=== PATIENT | male | born 1945 | race Caucasian/White ===

== ENCOUNTER 2016-07-19 10:33 | Inpatient (IN) | payer OTHER, MEDICARE ==
[2016-07-19] VITALS (11 sets, daily range): BP systolic 85–115; BP diastolic 63–72; PULSE 75–90; RESP 17–20; TEMP 97.7–99; O2SAT 93–98
[~2016-07-19] VITALS: Ht 208.3 cm; Wt 93.3 kg
[~2016-07-19 10:33] MED LIST: ASPI81TA82 PO; ATOR80TA PO; CARV3.12 PO; FLUT1INH INH; LOSA25TA31 PO; OXYBXL10 PO; PERC5TAB12 PO; RANI150 PO; SPIRCAP INH; TOVI4TAB PO; Z.0.OXYGEN INH
--- NOTE | 2016-07-19 10:52 | PD ---
HPI Chief Complaint: Fever Time Seen by Provider: 10:51 Travel History International Travel<30 days: No Contact w/Intl Traveler<30days: No Traveled to known affect area: No History of Present Illness HPI 70-year-old male came to the emergency room with history of fever, not feeling well and being sent by his ENT surgeon. His brought him in. Patient had sinus surgery done [address] Egan in his office. Since then he has been having runny nose and low-grade fever as per the patient. However since yesterday he has been having temperature of 101.5, body aches, headaches and the diarrhea. Patient says that whenever he attempts to eat or drink just comes straight out like water. No history of vomiting. Blood pressure in triage was 85/45. [facility] Past Medical History Narrative Medical List of his past medical history as reviewed from the nursing note. Arthritis: No Asthma: Yes Autoimmune Disease: No Blood Disorders: No Anxiety: No Depression: No Heart Rhythm Problems: No Cancer: No Cardiac Catheterization: Yes Cardiovascular Problems: Yes (hx of cardiac stents x3 hx of 4 mi's ) High Cholesterol: Yes Chemotherapy: No Chest Pain: Yes Congestive Heart Failure: Yes COPD: Yes Cerebrovascular Accident: No Coronary Artery Disease: Yes Diabetes: No Diminished Hearing: No Endocrine: No Gastrointestinal Disorders: No GERD: Yes Glaucoma: No Genitourinary: Yes (prostate) Headaches: Yes Hepatitis: No Hiatal Hernia: Yes Hypertension: Yes Immune Disorder: No Implanted Vascular Access Dvce: Yes Kidney Stones: No Musculoskeletal: No Neurologic: No Psychiatric: No Reproductive: Yes Respiratory: Yes (copd, hx of sinusitis, SLEEP APNEA) Migraines: No Myocardial Infarction: Yes (NOVEMBER 2009) Radiation Therapy: No Renal Failure: No Seizures: No Sickle Cell Disease: No Sleep Apnea: No Thyroid Disease: No Ulcer: No Past Surgical History Abdominal Surgery: Yes (right inguinal hernia removed) AICD: No Arteriovenous Shunt: No Body Medical Devices: left wrist hardware x3 cardiac stents Cardiac Surgery: Yes (x3 cardiac stents) Coronary Stent: Yes (X 3) Ear Surgery: Yes (cataracts bilat) Endocrine Surgery: No Eye Surgery: No Genitourinary Surgery: Yes (TURPX3) Gynecologic Surgery: No Insulin Pump: No Joint Replacement: No Neurologic Surgery: No Oral Surgery: No Pacemaker: No Thoracic Surgery: No Other Surgery: Yes (INGUINAL HERNIA REPAIR) Social History Alcohol Use: Yes (OCCASIONAL BEER) Tobacco Use: No Substance Use: No Allergies-Medications (Allergen,Severity, Reaction): Coded Allergies: *MDRO Multi-Drug Resistant Organism (Unverified Allergy, Unknown, 07/19/16 ) pt states hx of mrsa r great toe in the past Comments List of his allergies reviewed from the nursing note. Reported Meds & Prescriptions Reported Meds & Active Scripts Active Reported Ventolin Hfa 18 GM Inh (Albuterol Sulfate) 90 Mcg/Act Aer 1 Puff INH Q4H PRN Breo Ellipta Inh (Fluticasone/Vilanterol) 100-25 Mcg/Act Inh 1 Puff INH DAILY Use daily at the same time. Spiriva Handihaler (Tiotropium Inh) 18 Mcg Cap 18 Mcg INH DAILY 1 capsule = 18 mcg Aspirin Low Dose (Aspirin) 81 Mg Chew 81 Mg CHEW DAILY Ranitidine (Ranitidine HCl) 150 Mg Tab 150 Mg PO HS Lipitor (Atorvastatin Calcium) 80 Mg Tab 80 Mg PO HS Omeprazole 20 Mg Tab 20 Mg PO DAILY Losartan (Losartan Potassium) 25 Mg Tab 25 Mg PO DAILY Carvedilol 3.125 Mg Tab 3.125 Mg PO BID Narrative Medication List of his home medications reviewed from the nursing note. Review of Systems Except as stated in HPI: all other systems reviewed are Neg Physical Exam Narrative GENERAL: Awake, alert, moderate distress SKIN: Warm and dry. HEAD: Atraumatic. Normocephalic. EYES: Pupils equal and round. No scleral icterus. No injection or drainage. ENT: No nasal bleeding or discharge. Dry mucous membrane and coated tongue NECK: Trachea midline. No JVD. CARDIOVASCULAR: Regular rate and rhythm. No murmur appreciated. RESPIRATORY: No accessory muscle use. Clear to auscultation. Breath sounds equal bilaterally. GASTROINTESTINAL: Abdomen soft, non-tender, nondistended. Hepatic and splenic margins not palpable. MUSCULOSKELETAL: No obvious deformities. No clubbing. No cyanosis. No edema. NEUROLOGICAL: Awake and alert. No obvious cranial nerve deficits. Motor grossly within normal limits. Normal speech. PSYCHIATRIC: Appropriate mood and affect; insight and judgment normal. Data Data Last Documented VS Vital Signs Date Time Temp Pulse Resp B/P Pulse Ox O2 Delivery O2 Flow Rate FiO2 07/19/16 11:38 79 17 109/72 98 07/19/16 11:03 Room Air 12/30/16 10:41 98.3 Orders Complete Blood Count With Diff (07/19/16 11:00) Comprehensive Metabolic Panel (07/19/16 11:00) Lactic Acid Sepsis Protocol (07/19/16 11:00) Urinalysis - C+S If Indicated (07/19/16 11:00) Blood Culture (07/19/16 11:00) Chest, Single Ap (07/19/16 11:00) Blood Glucose (07/19/16 11:00) Ecg Monitoring (07/19/16 11:00) Iv Access Insert/Monitor (07/19/16 11:00) Oximetry (07/19/16 11:00) Oxygen Administration (07/19/16 11:00) Vancomycin Inj (Vancomycin Inj) (07/19/16 11:00) Piperacil-Tazo 4.5 Gm Premix (Zosyn 4.5 (07/19/16 11:00) Sodium Chlor 0.9% 1000 Ml Inj (Ns 1000 M (07/19/16 11:00) Ct Brain W/O Iv Contrast(Rout) (07/19/16 ) C Diff Toxin Pcr (07/19/16 11:26) Admit Order (Ed Use Only) (07/19/16 12:12) Labs Laboratory Tests Test 07/19/16 11:10 White Blood Count 9.4 TH/MM3 Red Blood Count 5.19 MIL/MM3 Hemoglobin 15.5 GM/DL Hematocrit 47.3 % Mean Corpuscular Volume 91.0 FL Mean Corpuscular Hemoglobin 29.9 PG Mean Corpuscular Hemoglobin 32.9 % Concent Red Cell Distribution Width 13.0 % Platelet Count 269 TH/MM3 Mean Platelet Volume 7.6 FL Neutrophils (%) (Auto) 81.6 % Lymphocytes (%) (Auto) 9.4 % Monocytes (%) (Auto) 8.6 % Eosinophils (%) (Auto) 0.1 % Basophils (%) (Auto) 0.3 % Neutrophils # (Auto) 7.7 TH/MM3 Lymphocytes # (Auto) 0.9 TH/MM3 Monocytes # (Auto) 0.8 TH/MM3 Eosinophils # (Auto) 0.0 TH/MM3 Basophils # (Auto) 0.0 TH/MM3 CBC Comment DIFF FINAL Differential Comment Sodium Level 144 MEQ/L Potassium Level 4.3 MEQ/L Chloride Level 107 MEQ/L Carbon Dioxide Level 25.6 MEQ/L Anion Gap 11 MEQ/L Blood Urea Nitrogen 21 MG/DL Creatinine 1.80 MG/DL Estimat Glomerular Filtration 38 ML/MIN Rate Random Glucose 134 MG/DL Lactic Acid Level 1.8 mmol/L Calcium Level 8.9 MG/DL Total Bilirubin 1.7 MG/DL Aspartate Amino Transf 21 U/L (AST/SGOT) Alanine Aminotransferase 30 U/L (ALT/SGPT) Alkaline Phosphatase 83 U/L Total Protein 7.5 GM/DL Albumin 3.4 GM/DL MDM Medical Decision Making Medical Screen Exam Complete: Yes Emergency Medical Condition: Yes Medical Record Reviewed: Yes Differential Diagnosis Sepsis, UTI, C. difficile colitis, influenza, pneumonia Narrative Course 11:24 AM awaiting for the blood test results and the x-ray and CAT scan to be done and resulted. I have started the patient on antibiotics as per the sepsis protocol. I have given him 1 L of IV fluid bolus. Patient has history of congestive heart failure and around to give him IV fluids slowly. I have explained to him and his that patient wouldn't will require admission. They understand. 12:06 PM blood test results are back and patient is dehydrated as well as left shift on CBC. Blood pressure after 1 L of IV fluid is 109 systolic. I have recommended admission for this patient and he agrees. CAT scan of the head showed bilateral sinus disease left worse than right. Awaiting for the hospitalist to call back. Critical Care Narrative Aggregate critical care time was 30 minutes. Time to perform other separately billable procedures was not included in the critical care time. My time did not include minutes spent treating any other patients simultaneously or on activities that did not directly contribute to the patient's treatment. The services I provided to this patient were to treat and/or prevent clinically significant deterioration that could result in: Sepsis protocol I provided critical care services requiring my management, as noted below: Chart data review, documentation time, medication orders and management, vital sign assessments/reviewing monitor data, ordering and reviewing lab tests, ordering and interpreting/reviewing x-rays and diagnostic studies, care of the patient and discussion of the patient with the admitting physicians. Procedures EKG Prior to Arrival: No Diagnosis Primary Impression: Sepsis Qualified Code: A41.9 - Sepsis, due to unspecified organism Additional Impressions: Sinusitis Qualified Code: J01.01 - Acute recurrent maxillary sinusitis Diarrhea Qualified Code: R19.7 - Diarrhea, unspecified type Hypotension Qualified Code: I95.9 - Hypotension, unspecified hypotension type Admitting Information Admitting Physician Requests: Admit Scripts Lactobacillus Acidophilus (Lactinex)1 Chew2 Tab CHEW TID #30 TAB Ref 0 Prov:Ariadne Gamez 07/21/16 Elvira Ramirez MD Jul 19, 2016 10:52
[2016-07-19] MEDS ORDERED: CARV3.12 PO (11:00)
[2016-07-19] MEDS ORDERED: OMEP20TA PO (11:00)
[2016-07-19] MEDS ORDERED: ASPI81CH37 CHEW (11:00)
[2016-07-19] MEDS ORDERED: FLUT1INH INH (11:00)
[2016-07-19] MEDS ORDERED: VENTAER INH (11:00)
[2016-07-19] MEDS ORDERED: VANCOMYCIN INJ 1,000 MG in SODIUM CHLOR 0.9% 250 ML INJ 250 ML IV STA (11:00)
[2016-07-19] MEDS ORDERED: SPIRCAP INH (11:00)
[2016-07-19] MEDS ORDERED: PIPERACIL-TAZO 4.5 GM PREMIX 100 ML IV STA (11:00)
[2016-07-19] MEDS ORDERED: SODIUM CHLOR 0.9% 1000 ML INJ 1,000 ML IV ONE ×2 (11:00→13:00)
[2016-07-19] MEDS ORDERED: LIPI80TA PO (11:00)
[2016-07-19] MEDS ORDERED: RANI150T PO (11:00)
[2016-07-19] MEDS ORDERED: LOSA25TA PO (11:00)
[2016-07-19 11:23] LABS: AUTOMATED NEUTROPHIL # 7.7 TH/MM3 (1.8-7.7); BASOPHIL % 0.3 % (0.0-2.0); EOSINOPHIL % 0.1 % (0.0-4.0); HEMATOCRIT 47.3 % (39.0-51.0); HEMO FLAGS DIFF FINAL; LYMPH % 9.4 % (9.0-44.0); LYMPHOCYTE # 0.9 TH/MM3 (1.0-4.8); MEAN CORPUSCULAR HEMOGLOBIN 29.9 PG (27.0-34.0); MEAN CORPUSCULAR HGB CONC 32.9 % (32.0-36.0); MONO % 8.6 % (0.0-8.0); NEUT % 81.6 % (16.0-70.0); PLATELET COUNT 269 TH/MM3 (150-450); RED BLOOD COUNT 5.19 MIL/MM3 (4.50-5.90); WHITE BLOOD COUNT 9.4 TH/MM3 (4.0-11.0)
[2016-07-19 11:32] LABS: CHLORIDE 107 MEQ/L (98-107); POTASSIUM 4.3 MEQ/L (3.5-5.1); SODIUM (NA) 144 MEQ/L (136-145)
[2016-07-19 11:37] LABS: ANION GAP 11 MEQ/L (5-15); BICARBONATE 25.6 MEQ/L (21.0-32.0); BLOOD UREA NITROGEN 21 MG/DL (7-18)
[2016-07-19 11:40] LABS: ALT (GPT) 30 U/L (12-78); AST (GOT) 21 U/L (15-37)
[2016-07-19 11:41] LABS: GLOMERULAR FILTRATION RATE 38 ML/MIN (>89)
[2016-07-19 11:42] LABS: TOTAL BILIRUBIN ADULT 1.7 MG/DL (0.2-1.0)
[2016-07-19 11:43] LABS: ALKALINE PHOSPHATASE 83 U/L (45-117)
--- NOTE | 2016-07-19 11:46 | RADHPO ---
EXAM DATE/TIME: 07/19/2016 11:23 [facility] COMPARISON: CHEST SINGLE AP, February 20, 2015, 12:36. INDICATIONS : Fever and chills. MEDICAL HISTORY : None. SURGICAL HISTORY : None. ENCOUNTER: Initial ACUITY: 3 days PAIN SCORE: 8/10 LOCATION: Bilateral upper chest FINDINGS: A single view of the chest demonstrates the lungs to be symmetrically aerated without evidence of mas s, infiltrate or effusion. The cardiomediastinal contours are unremarkable. Osseous structures are intact. CONCLUSION: No acute disease. No significant change has occurred. Lionel Lentz MD on July 19, 2016 at 11:45 Board Certified Radiologist. This report was verified electronically.
--- NOTE | 2016-07-19 11:46 | RADHPO ---
EXAM DATE/TIME: 07/19/2016 11:23 [facility] COMPARISON: No previous studies available for comparison. INDICATIONS : Cephalgia x 2 weeks. RADIATION DOSE: 64.69 CTDIvol (mGy) MEDICAL HISTORY : Myocardial infarction. Chronic obstructive pulmonary disease. Renal failure, chronic.Hypertension. SURGICAL HISTORY : None. ENCOUNTER: Initial ACUITY: 2 weeks PAIN SCALE: 8/10 LOCATION: cranial TECHNIQUE: Multiple contiguous axial images were obtained of the head. Using automated exposure control and adj ustment of the mA and/or kV according to patient size, radiation dose was kept as low as reasonably a chievable to obtain optimal diagnostic quality images. FINDINGS: CEREBRUM: The ventricles are normal for age. No evidence of midline shift, mass lesion, hemorrhage or acute in farction. No extra-axial fluid collections are seen. POSTERIOR FOSSA: The cerebellum and brainstem are intact. The 4th ventricle is midline. The cerebellopontine angle i s unremarkable. There is evidence of sinus disease in the maxillar sinuses bilaterally, left greater than right. EXTRACRANIAL: The visualized portion of the orbits is intact. SKULL: The calvaria is intact. No evidence of skull fracture. CONCLUSION: 1. Unremarkable CT scan of the brain. 2. Bilateral maxillary sinus disease, left greater than right. Lionel Lentz MD on July 19, 2016 at 11:43 Board Certified Radiologist. This report was verified electronically.
[2016-07-19] MEDS ORDERED: NALOXONE HCL 0.4 MG/ML AMP IV PRN (14:00)
[2016-07-19] MEDS ORDERED: MAGNESIUM HYDROXIDE SUSP 30 ML CUP PO PRN (14:00)
[2016-07-19] MEDS ORDERED: ACETAMINOPHEN 325 MG TAB PO PRN (14:00)
[2016-07-19] MEDS ORDERED: SODIUM CHLOR 0.9% 1000 ML INJ 1,000 ML IV SCH (14:00)
[2016-07-19] MEDS ORDERED: SODIUM CHLORIDE 0.9% FLUSH 5 ML FLUSH FLUSH PRN (14:00)
[2016-07-19] MEDS ORDERED: METOCLOPRAMIDE HCL 10 MG/2 ML VIAL IV PUSH PRN (14:00)
[2016-07-19 16:25] LABS: BLOOD, URINE SMALL (NEG); GLUCOSE,URINE NEG (NEG); KETONE, URINE NEG (NEG); NITRITE,URINE NEG (NEG)
[2016-07-19 16:29] LABS: COMMENT (UR) CULT NOT INDICATED; CULTURE IF INDICATED CULT NOT INDICATED; MUCUS URINE RARE /lpf (OCC); SQUAMOUS EPITHELIAL CELL URINE 0-2 /hpf (0-5); URINE COLOR STRAW (YELLW/STRAW); WBC, URINE 0-2 /hpf (0-5)
[2016-07-19] MEDS: SODIUM CHLORIDE 0.9% FLUSH 5 ML FLUSH FLUSH SCH (20:16)
[2016-07-19 20:21] LABS: C. DIFF EPI 027 PRESUMPTIVE NEGATIVE (NEGATIVE); C. DIFF TOXIN PCR NEGATIVE (NEGATIVE)
[2016-07-20] VITALS: BP 87/56; PULSE 84; RESP 18; TEMP 100.1; O2SAT 91
[2016-07-20] MEDS ORDERED: SODIUM CHLOR 0.9% 1000 ML INJ 1,000 ML IV ONE (02:15)
[2016-07-20 04:00] VITALS: BP 106/69; PULSE 81; RESP 16; TEMP 98.9; O2SAT 93
[2016-07-20 07:55] LABS: AUTOMATED NEUTROPHIL # 3.2 TH/MM3 (1.8-7.7); BASOPHIL % 0.3 % (0.0-2.0); EOSINOPHIL % 0.6 % (0.0-4.0); HEMATOCRIT 40.4 % (39.0-51.0); HEMO FLAGS DIFF FINAL; LYMPH % 24.2 % (9.0-44.0); LYMPHOCYTE # 1.3 TH/MM3 (1.0-4.8); MEAN CELL VOLUME 91.9 FL (80.0-100.0); MEAN CORPUSCULAR HEMOGLOBIN 29.7 PG (27.0-34.0); MEAN CORPUSCULAR HGB CONC 32.3 % (32.0-36.0); MONO % 14.1 % (0.0-8.0); NEUT % 60.8 % (16.0-70.0); PLATELET COUNT 215 TH/MM3 (150-450); RED CELL DISTRIBUTION WIDTH 13.5 % (11.6-17.2); WHITE BLOOD COUNT 5.2 TH/MM3 (4.0-11.0)
[2016-07-20 08:00] VITALS: BP 125/73; PULSE 72; PULSE 78; RESP 20; TEMP 98; O2SAT 96
[2016-07-20] MEDS: SODIUM CHLORIDE 0.9% FLUSH 5 ML FLUSH FLUSH SCH ×2 (08:25→20:30)
[2016-07-20 08:31] LABS: BICARBONATE 23.5 MEQ/L (21.0-32.0); POTASSIUM 4.2 MEQ/L (3.5-5.1)
--- NOTE | 2016-07-20 09:41 | HHI.HP ---
[facility] Jerome De La Paz M.D. Admission Diagnosis sepsis, diarrhea, hypotension, sinusitis Diagnoses: (1) Dehydration Diagnosis: Principal (2) Hypotension (3) Acute kidney injury (4) CAD (coronary artery disease) (5) Hyperlipidemia (6) COPD (chronic obstructive pulmonary disease) (7) Diarrhea Chief Complaint: Fever Travel History International Travel<30 Days: No Contact w/Intl Traveler <30 Da: No Traveled to Known Affected Are: No History of Present Illness The patient is a 70-year-old male who presented to the emergency department yesterday with complaint of fever and diarrhea. He had sinus surgery on . He states that he has been having rhinitis and low-grade fever occasionally since that time. Yesterday he had fever of 101.5 with body aches and headache. He has had diarrhea for the past week off and on. It has been getting worse over last few days. He states that he has a loose bowel movement anytime he tries to eat or drink anything. Denies nausea or vomiting. Review of Systems Constitutional: COMPLAINS OF: Fever, DENIES: Chills, Night Sweats Eyes: DENIES: Blurred vision, Vision loss Ears, nose, mouth, throat: DENIES: Hearing loss Respiratory: DENIES: Cough, Wheezing, Sputum production, Shortness of breath Cardiovascular: DENIES: Chest pain, Palpitations, Dyspnea on Exertion, Lower Extremity Edema Gastrointestinal: COMPLAINS OF: Diarrhea, DENIES: Abdominal pain, Constipation , Nausea, Vomiting Genitourinary: DENIES: Urinary frequency, Urinary incontinence, Urgency, Hematuria, Dysuria, Nocturia Musculoskeletal: DENIES: Joint pain, Muscle aches Integumentary: DENIES: Pruritus, Rash Hematologic/lymphatic: DENIES: Bruising Neurologic: DENIES: Headache Past Family Social History Past Medical History Asthma/COPD Hyperlipidemia Hypertension Coronary artery disease with history of [place] GERD History of sinusitis Sleep apnea Past Surgical History Right inguinal hernia surgery Cardiac catheterization with stent 3 Bilateral cataract surgery TURP Reported Medications Ventolin Hfa 18 GM Inh (Albuterol Sulfate) 90 Mcg/Act Aer 1 Puff INH Q4H PRN Breo Ellipta Inh (Fluticasone/Vilanterol) 100-25 Mcg/Act Inh 1 Puff INH DAILY Use daily at the same time. Spiriva Handihaler (Tiotropium Inh) 18 Mcg Cap 18 Mcg INH DAILY 1 capsule = 18 mcg Aspirin Low Dose (Aspirin) 81 Mg Chew 81 Mg CHEW DAILY Ranitidine (Ranitidine HCl) 150 Mg Tab 150 Mg PO HS Lipitor (Atorvastatin Calcium) 80 Mg Tab 80 Mg PO HS Omeprazole 20 Mg Tab 20 Mg PO DAILY Losartan (Losartan Potassium) 25 Mg Tab 25 Mg PO DAILY Carvedilol 3.125 Mg Tab 3.125 Mg PO BID Allergies: Coded Allergies: *MDRO Multi-Drug Resistant Organism (Unverified Allergy, Unknown, 07/19/16 ) pt states hx of mrsa r great toe in the past Family History His father of a brain aneurysm rupture. Mother had heart disease, hypertension, diabetes, stroke. Brother had heart disease. Social History Occasionally drinks beer. Quit smoking in 2009. Had smoked 1.5 packs per day for 25 years prior to that. Physical Exam Vital Signs Vital Signs Date Time Temp Pulse Resp B/P Pulse Ox O2 Delivery O2 Flow Rate FiO2 07/20/16 08:00 98.0 72 20 125/73 96 07/20/16 04:00 98.9 81 16 106/69 93 07/20/16 00:00 100.1 84 18 87/56 91 07/19/16 20:00 87 07/19/16 20:00 99.0 85 18 103/65 96 07/19/16 18:37 83 07/19/16 17:15 97.7 79 20 115/70 94 07/19/16 16:35 84 17 107/68 93 Room Air 07/19/16 14:52 98.5 75 17 95/66 98 Room Air 07/19/16 14:50 Room Air 07/19/16 13:17 75 17 105/68 97 Room Air 07/19/16 12:16 81 17 97/68 98 07/19/16 11:38 79 17 109/72 98 07/19/16 11:03 95 Room Air 07/19/16 11:01 81 97 Room Air 07/19/16 10:55 81 85/68 07/19/16 10:41 98.3 90 18 85/63 95 Physical Exam GENERAL: Well-nourished, well-developed male in no acute distress. HEENT: Normocephalic, atraumatic. Pupils equal, round and reactive. Extraocular movements intact. No scleral icterus. No injection or drainage. Oropharynx is clear. Mucous membranes are moist. CARDIOVASCULAR: Regular rate and rhythm without murmurs, gallops, or rubs. RESPIRATORY: Clear to auscultation. No wheezes, rales, or rhonchi. Breathing is non-labored. GASTROINTESTINAL: Abdomen soft, non-tender, nondistended. EXTREMITIES: No lower extremity edema. No calf tenderness. PSYCH: Alert and oriented x 3. Laboratory Laboratory Tests Test 07/19/16 07/19/16 07/19/16 07/20/16 11:10 16:05 16:30 06:32 White Blood Count 9.4 5.2 Red Blood Count 5.19 4.40 Hemoglobin 15.5 13.1 Hematocrit 47.3 40.4 Mean Corpuscular Volume 91.0 91.9 Mean Corpuscular Hemoglobin 29.9 29.7 Mean Corpuscular Hemoglobin 32.9 32.3 Concent Red Cell Distribution Width 13.0 13.5 Platelet Count 269 215 Mean Platelet Volume 7.6 7.9 Neutrophils (%) (Auto) 81.6 60.8 Lymphocytes (%) (Auto) 9.4 24.2 Monocytes (%) (Auto) 8.6 14.1 Eosinophils (%) (Auto) 0.1 0.6 Basophils (%) (Auto) 0.3 0.3 Neutrophils # (Auto) 7.7 3.2 Lymphocytes # (Auto) 0.9 1.3 Monocytes # (Auto) 0.8 0.7 Eosinophils # (Auto) 0.0 0.0 Basophils # (Auto) 0.0 0.0 CBC Comment DIFF FINAL DIFF FINAL Differential Comment Sodium Level 144 147 Potassium Level 4.3 4.2 Chloride Level 107 115 Carbon Dioxide Level 25.6 23.5 Anion Gap 11 9 Blood Urea Nitrogen 21 15 Creatinine 1.80 1.20 Estimat Glomerular Filtration 38 60 Rate Random Glucose 134 88 Lactic Acid Level 1.8 Calcium Level 8.9 7.5 Total Bilirubin 1.7 Aspartate Amino Transf 21 (AST/SGOT) Alanine Aminotransferase 30 (ALT/SGPT) Alkaline Phosphatase 83 Total Protein 7.5 Albumin 3.4 Urine Color STRAW Urine Turbidity CLEAR Urine pH 6.0 Urine Specific [place] 1.015 Urine Protein NEG Urine Glucose (UA) NEG Urine Ketones NEG Urine Occult Blood SMALL Urine Nitrite NEG Urine Bilirubin NEG Urine Leukocyte Esterase NEG Urine WBC 0-2 Urine Squamous Epithelial 0-2 Cells Urine Mucus RARE Microscopic Urinalysis Comment CULT NOT INDICATED Stool C. difficile Toxin (PCR) NEGATIVE Stl C. difficile Toxin PRESUMPTIVE Epiderm 027 NEGATIVE Date/Time Procedure Status Source Growth 07/19/16 11:10 Aerobic Blood Culture Received Blood Peripheral Pending 07/19/16 11:10 Anaerobic Blood Culture Received Blood Peripheral Pending Result Diagram: 07/20/16 0632 07/20/16 0632 Imaging Last Impressions Chest X-Ray 07/19/16 1100 Signed Impressions: Service Date/Time: Tuesday, July 19, 2016 11:23 - CONCLUSION: No acute disease. No significant change has occurred. Lionel Lentz MD Head CT 07/19/16 0000 Signed Impressions: Service Date/Time: Tuesday, July 19, 2016 11:23 - CONCLUSION: 1. Unremarkable CT scan of the brain. 2. Bilateral maxillary sinus disease, left greater than right. Lionel Lentz MD Assessment and Plan Assessment and Plan 1. Fever, diarrhea: Possibly secondary to viral gastroenteritis. Continue Tylenol as needed for fever. Continue IV fluids. Send stool studies. 2. Dehydration: Improving with IV fluids. 3. Acute kidney injury: Secondary to dehydration. BUN and creatinine are improving. 4. CAD, hyperlipidemia: Continue statin. Beta gabe, ARB on hold secondary to low blood pressure. 5. Hypotension: Likely secondary to dehydration. Improved with IV fluids. Hold blood pressure medication. 6. COPD: Not in acute exacerbation. Continue inhalers. 7. DVT prophylaxis: SCDs, MARCELO joaniee. Problem Qualifiers (1) Hypotension: Qualified Code: I95.9 - Hypotension, unspecified hypotension type (2) Diarrhea: Qualified Code: R19.7 - Diarrhea, unspecified type Souleymane Velasquez MD Jul 20, 2016 09:41
[2016-07-20] MEDS ORDERED: ALBUTEROL SULFATE 90 MCG/ACT HFA 8 GM INHALER INH PRN (09:45)
[2016-07-20] MEDS: ASPIRIN 81 MG CHEW TAB CHEW SCH (10:05)
[2016-07-20] MEDS: PANTOPRAZOLE SOD 20 MG DELAYED RELEASE TAB PO SCH (10:05)
[2016-07-20] MEDS: FLUTICASONE 100 MCG/VILANTEROL 25 MCG INHALER INH SCH (11:22)
[2016-07-20 12:00] VITALS: BP 137/85; PULSE 72; RESP 20; TEMP 96.8; O2SAT 97
[2016-07-20 16:00] VITALS: BP 131/86; PULSE 76; RESP 18; TEMP 96.9; O2SAT 95
[2016-07-20 20:00] VITALS: BP 135/86; PULSE 76; PULSE 93; RESP 18; TEMP 97.9; O2SAT 97
[2016-07-20] MEDS ORDERED: ATORVASTATIN 40 MG TAB PO SCH (21:00)
[2016-07-20] MEDS: FAMOTIDINE 20 MG TAB PO SCH (21:24)
[2016-07-21] VITALS: BP 119/76; PULSE 81; RESP 18; TEMP 98.8; O2SAT 95
[2016-07-21 04:00] VITALS: BP 128/79; PULSE 75; RESP 18; TEMP 98.3; O2SAT 95
[2016-07-21 06:50] LABS: AUTOMATED NEUTROPHIL # 3.2 TH/MM3 (1.8-7.7); BASOPHIL % 0.3 % (0.0-2.0); EOSINOPHIL # 0.1 TH/MM3 (0-0.4); EOSINOPHIL % 2.4 % (0.0-4.0); HEMATOCRIT 39.6 % (39.0-51.0); HEMO FLAGS DIFF FINAL; LYMPH % 24.5 % (9.0-44.0); LYMPHOCYTE # 1.4 TH/MM3 (1.0-4.8); MEAN CELL VOLUME 90.7 FL (80.0-100.0); MEAN CORPUSCULAR HEMOGLOBIN 29.4 PG (27.0-34.0); MEAN CORPUSCULAR HGB CONC 32.4 % (32.0-36.0); MONO % 15.2 % (0.0-8.0); NEUT % 57.6 % (16.0-70.0); PLATELET COUNT 228 TH/MM3 (150-450); RED BLOOD COUNT 4.37 MIL/MM3 (4.50-5.90); RED CELL DISTRIBUTION WIDTH 12.7 % (11.6-17.2); WHITE BLOOD COUNT 5.5 TH/MM3 (4.0-11.0)
[2016-07-21 06:59] LABS: POTASSIUM 3.7 MEQ/L (3.5-5.1)
[2016-07-21 07:04] LABS: BICARBONATE 23.8 MEQ/L (21.0-32.0)
[2016-07-21 08:00] VITALS: BP 129/83; PULSE 76; RESP 20; TEMP 97.4; O2SAT 95
[2016-07-21] MEDS: SODIUM CHLORIDE 0.9% FLUSH 5 ML FLUSH FLUSH SCH (09:00)
[2016-07-21] MEDS ORDERED: TIOTROPIUM BROMIDE 18 MCG INH INH SCH (09:00)
[2016-07-21] MEDS: FAMOTIDINE 20 MG TAB PO SCH (10:05)
[2016-07-21] MEDS: ASPIRIN 81 MG CHEW TAB CHEW SCH (10:05)
[2016-07-21] MEDS: PANTOPRAZOLE SOD 20 MG DELAYED RELEASE TAB PO SCH (10:05)
[2016-07-21] MEDS: FLUTICASONE 100 MCG/VILANTEROL 25 MCG INHALER INH SCH (10:06)
--- NOTE | 2016-07-21 12:00 | HHI.DCPOC ---
Discharge Care Plan Diagnosis: (1) Diarrhea (2) Dehydration (3) TRACY (acute kidney injury) (4) Hypotension Your Health Problems Are: Irregular Bowel Function Goals to Promote Your Health * To prevent worsening of your condition and complications * To maintain your health at the optimal level Directions to Meet Your Goals Take your medications as prescribed Follow your dietary instruction Follow activity as directed Keep your appointments as scheduled Take your immunizations and boosters as scheduled If your symptoms worsen call your PCP, if no PCP go to Urgent Care Center or Emergency Room Smoking is Dangerous to Your Health. Avoid second hand smoke Call the 24-hour hour crisis hotline for domestic abuse at Ariadne Gamez Jul 21, 2016 12:00
--- NOTE | 2016-07-21 12:05 | HHI.PR ---
Subjective Remarks Follow-up for diarrhea, dehydration. Patient states his diarrhea has improved. He had 3 loose stools today. He is eating and drinking well. He is ambulating. He denies any lightheadedness, cough, shortness of breath, abdominal pain, nausea, or vomiting. Objective Vitals Vital Signs Date Time Temp Pulse Resp B/P Pulse Ox O2 Delivery O2 Flow Rate FiO2 07/21/16 08:00 97.4 76 20 129/83 95 07/21/16 04:00 98.3 75 18 128/79 95 07/21/16 00:00 98.8 81 18 119/76 95 07/20/16 22:35 18 07/20/16 20:00 97.9 76 18 135/86 97 07/20/16 20:00 93 07/20/16 16:00 96.9 76 18 131/86 95 I/O 07/20/16 07/20/16 07/20/16 07/21/16 07/21/16 07/21/16 06:59 14:59 22:59 06:59 14:59 22:59 Intake Total 1567 ml 725 ml 1180 ml 480 ml Balance 1567 ml 725 ml 1180 ml 480 ml Intake Oral 725 ml 520 ml 480 ml IV Total 1567 ml 660 ml # Voids 5 3 2 Result Diagram: 07/21/1661207/21/16612 Objective Remarks GENERAL: Well-nourished, well-developed male in no apparent distress sitting in recliner. SKIN: Warm and dry. CARDIOVASCULAR: Regular rate and rhythm. RESPIRATORY: No accessory muscle use. Clear to auscultation. Breath sounds equal bilaterally. GASTROINTESTINAL: Abdomen soft, non-tender, nondistended. NEUROLOGICAL: Awake and alert. Motor grossly within normal limits. Normal speech. PSYCHIATRIC: Appropriate mood and affect; insight and judgment normal. Urinary Catheter: No Vascular Central Line Catheter: No A/P Problem List: (1) Dehydration ICD Code: E86.0 Status: Acute (2) Hypotension ICD Code: I95.9 Status: Acute (3) Acute kidney injury ICD Code: N17.9 Status: Acute (4) CAD (coronary artery disease) ICD Code: I25.10 Status: Chronic (5) Hyperlipidemia ICD Code: E78.5 Status: Chronic (6) COPD (chronic obstructive pulmonary disease) ICD Code: J44.9 Status: Acute (7) Diarrhea ICD Code: R19.7 Status: Acute Assessment and Plan 70-year-old male with: 1. Fever, diarrhea: Improved. Possibly secondary to viral gastroenteritis. Continue Tylenol as needed for fever. Continue IV fluids. C. difficile negative. Hemoccult negative. No stool white blood cells. Giardia and Cryptosporidium tests are pending. Blood cultures no growth to date. Patient has been afebrile since temp of 100.1 on 07/20 at midnight. Patient still has loose stools, but improved. 2. Dehydration: Improved with IV fluids. 3. Acute kidney injury: Resolved. Secondary to dehydration. BUN and creatinine are now within normal limits. 4. CAD, hyperlipidemia: Continue statin. Beta gabe, ARB on hold secondary to low blood pressure. Blood pressure improved. ARB and beta gabe will be restarted at home. 5. Hypotension: Resolved. Likely secondary to dehydration. Improved with IV fluids. BP normal this morning. 6. COPD: Not in acute exacerbation. Continue inhalers. 7. DVT prophylaxis: SCDs, MARCELO mata. Discharge disposition: Home in fair condition. Diet: Heart healthy, GERD Activity: Regular Medications: Resume home medications including carvedilol and losartan. Patient prescribed Lactinex for diarrhea. Follow-up: PCP 2-3 days. Written by Ariadne Gamez PA-C acting as scribe for Dr. Velasquez on 07/21/16 at 1150. The documentation accurately reflects the work and decisions performed face-to- face by [place] Dr. Velasquez on 07/21/16 at 1150. Discharge Planning Patient to be discharged today. Problem Qualifiers (1) Hypotension: Qualified Code: I95.9 - Hypotension, unspecified hypotension type (2) Diarrhea: Qualified Code: R19.7 - Diarrhea, unspecified type Ariadne Gamez Jul 21, 2016 12:05
[2016-07-21] MEDS ORDERED: LACTCHW3 CHEW (12:11)
== END 2016-07-21 13:48 | disposition home or self-care (01) | DRG 684 ==
LOC: PHED 10:33 → PHEDA 12:13 → PH3A 16:45
PROVIDERS: ADMIT Family Medicine; ATTEND Family Medicine
DX: N17.9 Acute kidney failure, unspecified (principal); I11.0 Hypertensive heart disease with heart failure; I95.9 Hypotension, unspecified; J44.9 Chronic obstructive pulmonary disease, unspecified; I50.9 Heart failure, unspecified; E86.0 Dehydration; A08.4 Viral intestinal infection, unspecified; I25.2 Old myocardial infarction; J01.01 Acute recurrent maxillary sinusitis; J45.909 Unspecified asthma, uncomplicated; I25.10 Atherosclerotic heart disease of native coronary artery without angina pectoris; K21.9 Gastro-esophageal reflux disease without esophagitis; G47.30 Sleep apnea, unspecified; E78.5 Hyperlipidemia, unspecified; Z86.14 Personal history of Methicillin resistant Staphylococcus aureus infection; Z87.891 Personal history of nicotine dependence; Z95.5 Presence of coronary angioplasty implant and graft
CPT/HCPCS: 70450; 71010; 80048; 80053; 81001; 82272; 83605; 85025; 87040; 87205; 87328; 87329; 87493; 96365; 96375; J2543; J3370; J7030; J7050

== ENCOUNTER 2016-08-14 16:21 | Observation (INO) | payer MEDICARE, OTHER ==
[~2016-08-14] VITALS: Ht 177.8 cm; Wt 90.0 kg
[~2016-08-14 16:21] MED LIST changes: +ASPI81CH37 CHEW; -ASPI81TA82 PO; -ATOR80TA PO; +LACTCHW3 CHEW; +LIPI80TA PO; +LOSA25TA PO; -LOSA25TA31 PO; +OMEP20TA PO; -OXYBXL10 PO; -PERC5TAB12 PO; -RANI150 PO; +RANI150T PO; -TOVI4TAB PO; +VENTAER INH; -Z.0.OXYGEN INH
[2016-08-14 16:24] VITALS: BP 116/74; PULSE 78; RESP 20; TEMP 97.8; O2SAT 92
[2016-08-14 17:04] VITALS: O2SAT 95
[2016-08-14] MEDS ORDERED: ASPIRIN 325 MG TAB PO ONE (17:15)
[2016-08-14] MEDS ORDERED: SODIUM CHLORIDE 0.9% FLUSH 5 ML FLUSH IVF PRN ×2 (17:15→19:30)
--- NOTE | 2016-08-14 17:25 | PD ---
HPI Chief Complaint: Medical Clearance Time Seen by Provider: 16:51 Travel History International Travel<30 days: No Contact w/Intl Traveler<30days: No Traveled to known affect area: No History of Present Illness HPI 70yo M with PMH of CAD s/p cardiac stent x3 (Follow with Dr. Sullivan) presents to the ED with c/o chest pain for 3 days. Pain is left sided, constant and nonradiating. Associated with sob and mild nausea. Denies any fever, vomiting , abdominal pain, focal weakness or numbness. Pt had stress test last year. Did not take his aspirin today. States his blood pressure was low earlier today but pt has been normotensive in the ED. PFSH Past Medical History Hx Anticoagulant Therapy: Yes Arthritis: Yes Asthma: Yes Autoimmune Disease: No Blood Disorders: No Anxiety: No Depression: No Heart Rhythm Problems: No Cancer: Yes (ON [id number] ) Cardiac Catheterization: Yes Cardiovascular Problems: Yes High Cholesterol: Yes Chemotherapy: No Chest Pain: Yes (MYOCARDITIS 2 YEARS AGO ) Congestive Heart Failure: Yes COPD: Yes Cerebrovascular Accident: No Coronary Artery Disease: Yes Diabetes: No Diminished Hearing: No Endocrine: No Gastrointestinal Disorders: Yes ( severe reflux) GERD: Yes Glaucoma: No Genitourinary: Yes Headaches: Yes Hepatitis: No Hiatal Hernia: Yes Hypertension: Yes Immune Disorder: No Implanted Vascular Access Dvce: Yes Kidney Stones: No Musculoskeletal: Yes Neurologic: Yes Psychiatric: No Reproductive: Yes Respiratory: Yes Migraines: Yes (SINCE SINUS SURGERY ) Myocardial Infarction: Yes (NOVEMBER 2009) Radiation Therapy: No Renal Failure: No Seizures: No Sickle Cell Disease: No Sleep Apnea: Yes Thyroid Disease: No Ulcer: No Past Surgical History Abdominal Surgery: Yes (HERNIA REPAIR-NEED ANOTHER ONE ) AICD: No Arteriovenous Shunt: No Body Medical Devices: left wrist hardware x3 cardiac stents Cardiac Surgery: Yes (STENTS-3X, VEINS REMOVED RIGHT LEG-CONCRETE POISIONING) Coronary Stent: Yes (X 3) Ear Surgery: Yes (cataracts bilat) Endocrine Surgery: No Genitourinary Surgery: Yes (TURP, 4 BLADDER NECK ) Gynecologic Surgery: No Insulin Pump: No Joint Replacement: No Neurologic Surgery: No Oral Surgery: Yes (ALL TEETH GONE ) Pacemaker: No Thoracic Surgery: No Other Surgery: Yes (INGUINAL HERNIA REPAIR) Social History Alcohol Use: No Tobacco Use: No Substance Use: No Allergies-Medications (Allergen,Severity, Reaction): Coded Allergies: *MDRO Multi-Drug Resistant Organism (Unverified Allergy, Unknown, 08/14/16) pt states hx of mrsa r great toe in the past Reported Meds & Prescriptions Reported Meds & Active Scripts Active Reported Ventolin Hfa 18 GM Inh (Albuterol Sulfate) 90 Mcg/Act Aer 1 Puff INH Q4H PRN Breo Ellipta Inh (Fluticasone/Vilanterol) 100-25 Mcg/Act Inh 1 Puff INH DAILY Use daily at the same time. Spiriva Handihaler (Tiotropium Inh) 18 Mcg Cap 18 Mcg INH DAILY 1 capsule = 18 mcg Aspirin Low Dose (Aspirin) 81 Mg Chew 81 Mg CHEW DAILY Ranitidine (Ranitidine HCl) 150 Mg Tab 150 Mg PO HS Lipitor (Atorvastatin Calcium) 80 Mg Tab 80 Mg PO HS Carvedilol 3.125 Mg Tab 3.125 Mg PO BID Review of Systems Except as stated in HPI: all other systems reviewed are Neg Physical Exam Narrative GENERAL: 70yo M not in distress. SKIN: Warm and dry. HEAD: Atraumatic. Normocephalic. EYES: Pupils equal and round. No scleral icterus. No injection or drainage. ENT: No nasal bleeding or discharge. Mucous membranes pink and moist. NECK: Trachea midline. No JVD. CARDIOVASCULAR: Regular rate and rhythm. No murmur appreciated. RESPIRATORY: No accessory muscle use. Clear to auscultation. Breath sounds equal bilaterally. GASTROINTESTINAL: Abdomen soft, non-tender, nondistended. No rebound tenderness or guarding. MUSCULOSKELETAL: No obvious deformities. No clubbing. No cyanosis. Trace bilateral lower extremity edema. NEUROLOGICAL: Awake and alert. No obvious cranial nerve deficits. Motor grossly within normal limits. Normal speech. PSYCHIATRIC: Appropriate mood and affect; insight and judgment normal. Data Data Last Documented VS Vital Signs Date Time Temp Pulse Resp B/P Pulse Ox O2 Delivery O2 Flow Rate FiO2 08/14/16 18:49 65 17 124/75 96 Nasal Cannula 2 08/14/16 16:24 97.8 Orders Electrocardiogram (08/14/16 ) Basic Metabolic Panel (Bmp) (08/14/16 17:07) Ckmb (Isoenzyme) Profile (08/14/16 17:07) Complete Blood Count With Diff (08/14/16 17:07) Magnesium (Mg) (08/14/16 17:07) Prothrombin Time / Inr (Pt) (08/14/16 17:07) Act Partial Throm Time (Ptt) (08/14/16 17:07) Troponin I (08/14/16 17:07) Chest, Single Ap (08/14/16 17:07) Ecg Monitoring (08/14/16 17:07) Bilateral Bp Monitoring (08/14/16 17:07) Iv Access Insert/Monitor (08/14/16 17:07) Oximetry (08/14/16 17:07) Oxygen Administration (08/14/16 17:07) Sodium Chloride 0.9% Flush (Ns Flush) (08/14/16 17:15) Aspirin (Aspirin) (08/14/16 17:15) CKMB (08/14/16 17:24) CKMB% (08/14/16 17:24) Nitroglycerin Sl (Nitrostat Sl) (08/14/16 19:30) Activity Bed Rest With Brp (08/14/16 19:20) Vital Signs (Adult) Q4H (08/14/16 19:20) Cardiac Rhythm .As Directed (08/14/16 19:20) ^ Notify Dr: Other .PRN (08/14/16 19:20) ^ Notify DrJacinta Parameters (08/14/16 19:20) Resp Oxygen Nasal Cannula (08/14/16 ) Ckmb (Isoenzyme) Profile (08/14/16 19:20) Ckmb (Isoenzyme) Profile (08/14/16 22:20) Troponin I (08/14/16 19:20) Troponin I (08/14/16 22:20) Electrocardiogram (08/14/16 19:20) Electrocardiogram (08/14/16 22:20) ^ Obtain (08/14/16 19:20) Sodium Chloride 0.9% Flush (Ns Flush) (08/14/16 19:30) Sodium Chloride 0.9% Flush (Ns Flush) (08/14/16 21:00) Acid Extractor / Telemetry MANAV.Q8H (08/14/16 19:20) Admit Order (Ed Use Only) (08/14/16 19:20) Labs Laboratory Tests Test 08/14/16 17:24 White Blood Count 7.7 TH/MM3 Red Blood Count 4.76 MIL/MM3 Hemoglobin 14.5 GM/DL Hematocrit 42.5 % Mean Corpuscular Volume 89.3 FL Mean Corpuscular Hemoglobin 30.4 PG Mean Corpuscular Hemoglobin 34.0 % Concent Red Cell Distribution Width 14.1 % Platelet Count 221 TH/MM3 Mean Platelet Volume 7.8 FL Neutrophils (%) (Auto) 62.5 % Lymphocytes (%) (Auto) 26.8 % Monocytes (%) (Auto) 8.7 % Eosinophils (%) (Auto) 1.4 % Basophils (%) (Auto) 0.6 % Neutrophils # (Auto) 4.8 TH/MM3 Lymphocytes # (Auto) 2.0 TH/MM3 Monocytes # (Auto) 0.7 TH/MM3 Eosinophils # (Auto) 0.1 TH/MM3 Basophils # (Auto) 0.0 TH/MM3 CBC Comment DIFF FINAL Differential Comment Prothrombin Time 11.7 SEC Prothromb Time International 1.1 RATIO Ratio Activated Partial 22.2 SEC Thromboplast Time Sodium Level 140 MEQ/L Potassium Level 5.0 MEQ/L Chloride Level 109 MEQ/L Carbon Dioxide Level 24.0 MEQ/L Anion Gap 7 MEQ/L Blood Urea Nitrogen 18 MG/DL Creatinine 1.06 MG/DL Estimat Glomerular Filtration 69 ML/MIN Rate Random Glucose 91 MG/DL Calcium Level 8.6 MG/DL Magnesium Level 2.1 MG/DL Total Creatine Kinase 147 U/L Creatine Kinase MB 0.7 NG/ML Troponin I LESS THAN 0.02 NG/ML MDM Medical Decision Making Medical Screen Exam Complete: Yes Emergency Medical Condition: Yes Interpretation(s) EKG: NSR 67bpm. LAD. Q wave III, aVF No ST segment elevation or depression. Differential Diagnosis ACS vs. PNA vs. GERD Narrative Course 70yo M with risk factors including CAD s/p cardiac stent here with chest pain for 3 days. Labs reviewed, no leukocytosis. Troponin negative. CXR negative. Pt given aspirin and with mild chest pain still. Will give sublingual nitroglycerine and reevaluate. Pt to be admitted to chest pain center for serial EKG and cardiac enzymes. Diagnosis Primary Impression: Chest pain Qualified Code: R07.9 - Chest pain, unspecified type Admitting Information Admitting Physician Requests: Observation Flori Nichole DO Aug 14, 2016 17:25 Flori Nichole DO Aug 14, 2016 17:25
[2016-08-14 17:30] VITALS: BP_SYST 120; BP_SYST 131; BP_DIAS 74; BP_DIAS 82; PULSE 71; RESP 17; O2SAT 94
[2016-08-14] MEDS ORDERED: LOSA25TA PO (17:32)
[2016-08-14 17:38] LABS: AUTOMATED NEUTROPHIL # 4.8 TH/MM3 (1.8-7.7); BASOPHIL % 0.6 % (0.0-2.0); EOSINOPHIL # 0.1 TH/MM3 (0-0.4); EOSINOPHIL % 1.4 % (0.0-4.0); HEMATOCRIT 42.5 % (39.0-51.0); HEMO FLAGS DIFF FINAL; LYMPH % 26.8 % (9.0-44.0); MEAN CELL VOLUME 89.3 FL (80.0-100.0); MEAN CORPUSCULAR HEMOGLOBIN 30.4 PG (27.0-34.0); MONO % 8.7 % (0.0-8.0); NEUT % 62.5 % (16.0-70.0); PLATELET COUNT 221 TH/MM3 (150-450); RED BLOOD COUNT 4.76 MIL/MM3 (4.50-5.90); RED CELL DISTRIBUTION WIDTH 14.1 % (11.6-17.2); WHITE BLOOD COUNT 7.7 TH/MM3 (4.0-11.0)
--- NOTE | 2016-08-14 17:50 | RADRPT ---
EXAM DATE/TIME: 08/14/2016 17:39 [facility] COMPARISON: CHEST SINGLE AP, July 19, 2016, 11:23. INDICATIONS : Chest pain. MEDICAL HISTORY : Myocardial infarction. Chronic obstructive pulmonary disease. Renal failure, chronic. Hypertention. SURGICAL HISTORY : None. ENCOUNTER: Initial ACUITY: 2 days PAIN SCORE: 5/10 LOCATION: chest FINDINGS: A single view of the chest demonstrates the lungs to be symmetrically aerated without evidence of mas s, infiltrate or effusion. The cardiomediastinal contours are unremarkable. Osseous structures are intact. CONCLUSION: Normal examination for a patient of this age. No significant change has occurred. Nathaniel Perez MD on August 14, 2016 at 17:49 Board Certified Radiologist. This report was verified electronically.
[2016-08-14 17:53] LABS: APTT (PATIENT) 22.2 SEC (24.3-30.1); INTERNATIONAL NORMALIZED RATIO 1.1 RATIO; PROTHROMBIN TIME - PATIENT 11.7 SEC (9.8-11.6)
[2016-08-14 18:40] LABS: ANION GAP 7 MEQ/L (5-15); BLOOD UREA NITROGEN 18 MG/DL (7-18); CHLORIDE 109 MEQ/L (98-107); CREATINE KINASE 147 U/L (39-308); GLOMERULAR FILTRATION RATE 69 ML/MIN (>89); MAGNESIUM 2.1 MG/DL (1.5-2.5); SODIUM (NA) 140 MEQ/L (136-145)
[2016-08-14 18:49] VITALS: BP 124/75; PULSE 65; RESP 17; O2SAT 96
[2016-08-14 18:54] LABS: CKMB 0.7 NG/ML (0.5-3.6)
[2016-08-14] MEDS ORDERED: NITROGLYCERIN 0.4 MG SL 25 TABS/BTL SL ONE (19:30)
[2016-08-14 19:40] VITALS: BP 134/83; PULSE 63; RESP 18; O2SAT 94
[2016-08-14 20:42] LABS: CREATINE KINASE 76 U/L (39-308)
[2016-08-14] MEDS: SODIUM CHLORIDE 0.9% FLUSH 5 ML FLUSH IVF SCH (20:52)
[2016-08-14 22:56] VITALS: BP 115/73; PULSE 64; RESP 19; O2SAT 94
[2016-08-14 23:10] LABS: CREATINE KINASE 74 U/L (39-308)
[2016-08-15 03:35] VITALS: BP 116/78; PULSE 65; RESP 20; TEMP 95.6; O2SAT 94
[2016-08-15 08:00] VITALS: BP 125/79; PULSE 68; PULSE 70; RESP 20; TEMP 96.4; O2SAT 96
--- NOTE | 2016-08-15 08:19 | HHI.DCPOC ---
Discharge Care Plan Diagnosis: (1) Chest pain, atypical (2) HTN (hypertension) (3) Hyperlipidemia (4) CAD (coronary artery disease) (5) H/O heart artery stent Goals to Promote Your Health * To prevent worsening of your condition and complications * To maintain your health at the optimal level Directions to Meet Your Goals Take your medications as prescribed Follow your dietary instruction Follow activity as directed Keep your appointments as scheduled Take your immunizations and boosters as scheduled If your symptoms worsen call your PCP, if no PCP go to Urgent Care Center or Emergency Room Smoking is Dangerous to Your Health. Avoid second hand smoke Call the 24-hour hour crisis hotline for domestic abuse at Andrea Chong Aug 15, 2016 08:19
[2016-08-15] MEDS ORDERED: CARVEDILOL 3.125 MG TAB PO SCH (09:00)
[2016-08-15] MEDS ORDERED: ASPIRIN 81 MG CHEW TAB CHEW SCH (09:00)
[2016-08-15] MEDS: SODIUM CHLORIDE 0.9% FLUSH 5 ML FLUSH IVF SCH (09:36)
--- NOTE | 2016-08-15 10:43 | MH ---
cc: MAGGY LI MD DATE OF ADMISSION: 08/14/2016 DATE OF 11/23/1937 CHIEF COMPLAINT Chest pain HISTORY OF PRESENT ILLNESS This is a 70-year-old male who presents to the ED via private vehicle complaining of chest pain and hypertension. He has history of CAD. He follows with Dr. Sanches. His last heart cath was in February 2014 at which time his stents were patent. There is other disease, but the stent at that time were patent. He states he was hospitalized last month for hypertension and dehydration. Since then, he states his blood pressure has been running low. His medicine is Losartan and his Carvedilol was discontinued secondary to hypotension. Then he tried to taper his medications back on board. He began taking Carvedilol and was doing okay and then the Losartan was added and then he became hypotensive again. He spoke with his primary care physician who had advised him to come to the ER at that point. He also complains of a left lateral chest pain. He states he feels sore. At times, it can be brought on or worsened if he moves his left arm. It is kind of like his discomfort he had when he needed stenting. No shortness of breath, nausea, or diaphoresis with this symptom. PAST MEDICAL HISTORY 1. CAD with stent of RCA. 2. Hypertension 3. Hyperlipidemia 4. COPD 5. GERD 6. He had pericarditis two years ago. 7. Denies diabetes. FAMILY HISTORY Positive for CAD. SOCIAL HISTORY He is not smoking. Denies alcohol or illicit drugs. PAST SURGICAL HISTORY 1. Heart catheterizations. 2. He has had stents. 3. He has had transurethral resection of the prostate. 4. He has had inguinal hernia repair. ALLERGIES NO KNOWN DRUG ALLERGIES, BUT HE HAS A HISTORY OF MRSA. MEDICATIONS Include: 1. Ventolin inhaler 2. Ellipta inhaler 3. Spiriva HandiHaler 4. Aspirin 5. Ranitidine 6. Lipitor 7. He has also been on Carvedilol and Losartan, however, it has been discontinued at times over the last two weeks. REVIEW OF SYSTEMS GENERAL: Denies fevers or chills. He states he had an illness last month, but is starting to feel better. HEENT: Denies headache, earache, sore throat or difficulty swallowing. At times he gets dizzy. CARDIOVASCULAR: Describes the discomfort as mentioned above. Denies diaphoresis. Denies sensation of heart beating rapidly or irregularly. No syncope. RESPIRATORY: Denies shortness of breath or inspirational chest discomfort. Denies coughing, wheezing or hemoptysis. GI: Denies nausea, vomiting, diarrhea, abdominal pain or blood in the stool. MUSCULOSKELETAL: Denies joint pain or edema. Denies calf pain or edema. NEUROVASCULAR: Denies headache. He fell little dizzy at times. Denies numbness or tingling of the extremities. ENDOCRINE: Denies by polyuria or polydipsia. HEMATOLOGIC: Denies easy bruising. SKIN: Denies rash or itching. PHYSICAL EXAMINATION VITAL SIGNS: In the emergency initially included a blood pressure of 116/74, heart rate 78, respiration 20, pulse oximetry 92% on room air and he was afebrile. Most recent vital signs include a blood pressure of 116/70, heart rate 65, respirations 20, pulse oximetry 94% on room air and he was afebrile. GENERAL: The patient seen in the examination room in no apparent distress. He is pleasant. He speaks in clear and complete sentences. HEENT: Head is atraumatic and normocephalic. NECK: Supple without lymphadenopathy and trachea is midline. No JVD or carotid bruits. CARDIOVASCULAR: Regular rate and rhythm without murmur, gallop or rub. RESPIRATORY: Lungs are clear to auscultation bilaterally. No wheezing, rales or rhonchi. No reproducible chest wall discomfort. No use of accessory muscles. GI: Abdomen is nontender, nondistended and bowel sounds are normal. No guarding or rebound. No obvious pulsatile mass or bruit. No CVA tenderness. Strong femoral pulses bilaterally. MUSCULOSKELETAL: Patient moving upper and lower extremities freely. No joint tenderness or edema. No calf tenderness or edema, Homans' sign. Strong pulses in the upper and lower extremities. NEUROVASCULAR: The patient is alert and oriented. Cranial nerves II-XII grossly intact. No focal deficits and speech is clear. SKIN: No rashes. Skin turgor is normal. LABORATORY DATA CBC is unremarkable. Coagulation studies unremarkable. Basic metabolic panel essentially is unremarkable. Serial cardiac enzymes normal x3. Single view chest x-ray read by radiologist as normal examination. EKG's have been sinus bradycardia to sinus rhythm without significant ST-segment depression or elevation. ASSESSMENT AND PLAN 1. Chest pain: The discomfort appears to be atypical. He has been seen by Dr. Maggy Li of circular shear operator in the Chest pain center. Dr. Li also spoke with Dr. Sullivan and the patient will be discharged home with instructions to discontinue his Losartan and to follow up with Dr. Sullivan and with his primary care physician Dr. Jerome De La Paz. 2. Hypertension: The patient has a history of hypertension however, recently he has become hypotensive with both medications. Losartan will be discontinued. He should still keep a journal discuss with Dr. Sullivan and his primary care physician. 3. Hyperlipidemia: Continue current medication. 4. COPD: Continue current medication. 5. GERD: Continue current medication. The patient is stable at time. He is agreeable to this plan. Dictated by JAY العراقي MD KHANG Nunn/POLA /8:47 AM /10:41 AM
--- NOTE | 2016-08-15 15:05 | EKG ---
Date Performed: 08/14/2016 Time Performed: 22:24:26 PTAGE: 70 years EKG: Sinus rhythm ABNORMAL ECG PREVIOUS TRACING : 08/14/2016 19.46 Since previous tracing, no significant change noted DOCTOR: Esteban Long Interpretating Date/Time 08/15/2016 15:04:31
--- NOTE | 2016-08-15 15:06 | EKG ---
Date Performed: 08/14/2016 Time Performed: 19:46:35 PTAGE: 70 years EKG: SINUS BRADYCARDIA MARKED LEFT AXIS DEVIATION INCOMPLETE RIGHT BUNDLE BRANCH BLOCK ABNORMAL ECG PREVIOUS TRACING : 08/14/2016 16.49 Since previous tracing, no significant change noted DOCTOR: Esteban Long Interpretating Date/Time 08/15/2016 15:04:49
--- NOTE | 2016-08-15 15:06 | EKG ---
Date Performed: 08/14/2016 Time Performed: 16:49:23 PTAGE: 70 years EKG: Sinus rhythm MARKED LEFT AXIS DEVIATION ABNORMAL ECG PREVIOUS TRACING : 04/22/2016 13.21 Since previous tracing, no significant change noted DOCTOR: Esteban Long Interpretating Date/Time 08/15/2016 15:05:21
[2016-08-15] MEDS ORDERED: ATORVASTATIN 80 MG TAB PO SCH (21:00)
[2016-08-15] MEDS ORDERED: FAMOTIDINE 20 MG TAB PO SCH (21:00)
== END 2016-08-15 10:37 | disposition home or self-care (01) ==
LOC: NEPA 16:21 → NEDA 19:22 → NEDH 23:22 → NEPFCDU 08-15 02:41
PROVIDERS: ADMIT Internal Medicine Cardiovascular Disease; ATTEND Internal Medicine Cardiovascular Disease
DX: R07.89 Other chest pain (principal); I10 Essential (primary) hypertension; E78.5 Hyperlipidemia, unspecified; K21.9 Gastro-esophageal reflux disease without esophagitis; I25.10 Atherosclerotic heart disease of native coronary artery without angina pectoris; I25.2 Old myocardial infarction; R94.31 Abnormal electrocardiogram [ECG] [EKG]; J44.9 Chronic obstructive pulmonary disease, unspecified; G47.30 Sleep apnea, unspecified; J45.909 Unspecified asthma, uncomplicated; E78.00 Pure hypercholesterolemia, unspecified; Z95.5 Presence of coronary angioplasty implant and graft
CPT/HCPCS: 71010; 80048; 82550; 82552; 83735; 84484; 85025; 85610; 85730; 93005; 99285; G0378

== ENCOUNTER 2016-10-15 11:10 | Day surgery (SDC) | payer OTHER ==
[~2016-10-15] VITALS: Ht 180.3 cm; Wt 90.6 kg
[~2016-10-15 11:10] MED LIST changes: -LACTCHW3 CHEW; -LOSA25TA PO; -OMEP20TA PO
[2016-10-15 11:31] VITALS: BP 146/86; PULSE 76; RESP 16; TEMP 98.3; O2SAT 96
[2016-10-15] MEDS ORDERED: OMEGCAP PO (11:38)
[2016-10-15] MEDS ORDERED: ISOS30TA3 PO (11:38)
[2016-10-15] MEDS ORDERED: RANO500 PO (11:38)
[2016-10-15] MEDS ORDERED: OMEP20TA PO (11:38)
[2016-10-15 12:02] LABS: AUTOMATED NEUTROPHIL # 4.4 TH/MM3 (1.8-7.7); BASOPHIL % 0.4 % (0.0-2.0); EOSINOPHIL # 0.1 TH/MM3 (0-0.4); EOSINOPHIL % 1.2 % (0.0-4.0); HEMO FLAGS DIFF FINAL; LYMPH % 21.6 % (9.0-44.0); LYMPHOCYTE # 1.4 TH/MM3 (1.0-4.8); MEAN CELL VOLUME 89.9 FL (80.0-100.0); MEAN CORPUSCULAR HGB CONC 33.3 % (32.0-36.0); MONO % 7.9 % (0.0-8.0); NEUT % 68.9 % (16.0-70.0); PLATELET COUNT 202 TH/MM3 (150-450); RED BLOOD COUNT 4.78 MIL/MM3 (4.50-5.90); RED CELL DISTRIBUTION WIDTH 14.6 % (11.6-17.2); WHITE BLOOD COUNT 6.4 TH/MM3 (4.0-11.0)
[2016-10-15 12:12] LABS: APTT (PATIENT) 24.3 SEC (24.3-30.1); PROTHROMBIN TIME - PATIENT 10.8 SEC (9.8-11.6)
[2016-10-15 12:27] LABS: BICARBONATE 25.6 MEQ/L (21.0-32.0)
[2016-10-15 12:36] LABS: POTASSIUM 4.5 MEQ/L (3.5-5.1)
[2016-10-15] MEDS ORDERED: HEPARIN-NS/PF INJ 500 ML ONE (13:43)
[2016-10-15] MEDS ORDERED: MIDAZOLAM HCL 2 MG/2 ML VIAL ONE (13:43)
[2016-10-15] MEDS ORDERED: HEPARIN SODIUM - IV 10,000 UNITS/10 ML VIAL ONE (13:44)
[2016-10-15] MEDS ORDERED: VERAPAMIL HCL 5 MG/2 ML VIAL ONE (13:44)
[2016-10-15] MEDS ORDERED: IOHEXOL 350 MG/ML 100 ML BTL (for Cath Lab) OTHER ONE (14:20)
[2016-10-15] MEDS ORDERED: SODIUM CHLOR 0.9% 1000 ML INJ 1,000 ML IV ONE (14:23)
[2016-10-15] MEDS ORDERED: ATROPINE SULFATE 1 MG/ML VIAL IVP PRN (14:30)
[2016-10-15] MEDS ORDERED: ONDANSETRON HCL 4 MG/2 ML VIAL IV PRN (14:30)
[2016-10-15] MEDS ORDERED: SODIUM CHLOR 0.9% 250 ML INJ 250 ML IV PRN (14:30)
--- NOTE | 2016-10-15 16:33 | MA ---
cc: NADIA HERNÁNDEZ M.D. DATE: 10/15/2016 PROCEDURE Left heart catheterization, selective coronary angiography, left ventriculography. PROCEDURE NOTE The patient was brought to the cardiac catheters cardiac catheterization laboratory in a fasting state after having signed informed consent. The right radial region was prepped and draped as per policy and anesthetized with 1% lidocaine. Arterial access was obtained via the right radial artery and a 6-Tajik sheath placed. Coronary arteriography was performed using a tiger catheter. Left ventriculography was done using a multipurpose catheter. There were no apparent immediate complications. His arteriotomy site was closed with a TR band with the achievement of good hemostasis. HEMODYNAMIC RESULTS Left ventricle 137 with an end-diastolic pressure of 15. Aorta 136/68 with a mean of 90. There was no significant transvalvular aortic gradient on pullback of the pigtail catheter. CORONARY ARTERIOGRAPHY The left main is normal. The left anterior descending gives rise to a relatively small diagonal. There are minimal luminal irregularities in the proximal LAD and in the diagonal. Similarly there are minimal luminal irregularities in the mid to distal LAD. The left circumflex is a relatively large vessel giving rise to three small to medium sized obtuse marginals. There are minimal luminal irregularities in the left circumflex. The third obtuse marginal may have up to 20% stenosis diffusely in its proximal portion. The right coronary artery is a large dominant vessel. Stents are evident in the very proximal to midportion of the right coronary. The stents are widely patent. There may be up to 20% stenosis in the distal right coronary right before the takeoff of the posterior descending artery which is normal. LEFT VENTRICULOGRAPHY Contrast injection of the left ventricle reveals no segmental wall motion abnormalities. Ejection fraction is estimated at 65%. CONCLUSION 1. Overall minimal to mild coronary disease. 2. Normal left ventricular function with an estimated ejection fraction of 65% MD MARISOL Gee/jose /2:36 PM /4:30 PM [facility]
--- NOTE | 2016-10-15 22:41 | EKG ---
Date Performed: 10/15/2016 Time Performed: 12:00:36 PTAGE: 70 years EKG: Sinus rhythm . Possible left anterior fascicular block Borderline ECG PREVIOUS TRACING : 08/14/2016 22.24 Compared to prior tracing no significant change DOCTOR: Denver Youssef Interpretating Date/Time 10/15/2016 22:39:55
== END 2016-10-15 19:10 | disposition home or self-care (01) ==
LOC: HDOC 11:10 → HDIC 11:11 → HDOC 19:10
PROVIDERS: ATTEND Internal Medicine Cardiovascular Disease
DX: I25.10 Atherosclerotic heart disease of native coronary artery without angina pectoris (principal); I10 Essential (primary) hypertension; I51.4 Myocarditis, unspecified; E78.5 Hyperlipidemia, unspecified; J44.9 Chronic obstructive pulmonary disease, unspecified; J45.909 Unspecified asthma, uncomplicated; Z95.5 Presence of coronary angioplasty implant and graft
CPT/HCPCS: 80048; 85025; 85610; 85730; 93005; 93458; C1769; C1893; J1644; J2250; J3010; Q9967

== ENCOUNTER → 2016-12-04 | Day surgery (SDC) | payer OTHER ==
[~2016-12-04] MED LIST changes: +ACETAMINOPHEN/HYDROcodone 325 MG/5 MG TAB ONE; +BUPIVACAINE/EPINEPHRINE 0.5% 50 ML VIAL ONE; -CARV3.12 PO; +ISOS30TA3 PO; +KETOROLAC TROMETHAMINE 30 MG/ML (IVP) VIAL IV PUSH ONE; +LACTATED RINGER'S 1000 ML INJ 1,000 ML ONE; +MIDAZOLAM HCL 2 MG/2 ML VIAL ONE; +MORPHINE SULFATE 4 MG/ML INJ ONE; +OMEGCAP PO; +ONDANSETRON HCL 4 MG/2 ML VIAL IV PUSH ONE; +PROPOFOL 200 MG/20 ML AMP IV ONE; +ceFAZolin 2 GM PREMIX 50 ML ONE
--- NOTE | 2016-12-04 10:43 | TN ---
cc: JOSHUA VIRK M.D. DATE OF SURGERY 12/04/2016 PREOPERATIVE DIAGNOSIS Chronic right groin pain, right groin status post open right inguinal hernia repair. POSTOPERATIVE DIAGNOSIS Chronic right groin pain, right groin status post open right inguinal hernia repair. PROCEDURE PERFORMED Laparoscopic exploration right groin with laparoscopic right inguinal hernia repair with mesh. SURGEON Joshua Virk MD ANESTHESIA General LMA COMPLICATIONS None INDICATIONS FOR THE PROCEDURE Mr. Osorio is a pleasant 71-year-old gentleman who several years ago underwent an open right inguinal hernia repair by Dr. Gurrola for a right inguinal hernia. By the operative note, it looks like the patient had a direct inguinal hernia and he had an open mesh repair. The patient reported in the last year or so, he has developed a chronic right groin pain that is worsening. Pain is made worse with activity. On exam, the patient noted that he had a slight bulge in the right side. He was referred for surgical evaluation. On physical exam, the patient did have a weakness of the inguinal floor on the right and was tender on exam. I offered him a laparoscopic exploration of the groin with fascial mesh placement via a preperitoneal approach. The patient was agreeable. DETAILS The patient was identified, brought to the operating room and placed supine on the operating table. After adequate general anesthesia was achieved with LMA, the anterior abdomen and groin was prepped and draped in a standard surgical fashion. Quarter percent Marcaine injected into the skin and subcutaneous tissue in the infraumbilical space. An infraumbilical incision was made. Dissection was carried down through the subcutaneous tissue to the anterior rectus fascia. The anterior rectus fascia was then incised vertically off the midline. The rectus muscle was then retracted laterally. Preperitoneal space was entered with blunt finger dissection. Blunt dissecting balloon was inserted and insufflated with 30 pounds of air under direct vision using the 0 degrees laparoscope. Next, the balloon trocar was inserted and the preperitoneal space was insufflated to 11 mmHg using CO2 gas. Next, two 5 mm trocars were placed in the lower midline under direct vision. Attention was directed right groin. Jermaine's ligament and pubic tubercle were identified medially and then dissection proceeded out laterally identifying the cord structures exiting the internal ring. There was a small peritoneal sac right at the junction of the internal ring and this was teased back away from the internal ring several centimeters to get it away from the ring. Next, the inguinal floor was inspected. There was no evidence of a hernia repair from the preperitoneal approach. Overall the inguinal floor did have a slight bulge and appeared to be weakened. Therefore, it was elected to go ahead and place a mesh at this time. A piece of polypropylene mesh was cut 4 x 6 and then inserted through the 10-mm trocar site. A slit was cut in the mesh to allow the cord structures to pass freely through it. The mesh was placed through the posterior window behind the cord structures and then the mesh was wrapped around the cord and the slit reapproximated using the ProTacking device. Next, the mesh was secured medially at Jermaine's ligament and superiorly along the posterior abdominal wall fascia. With this, the indirect and direct spaces were well covered by mesh. An onlay mesh was then placed over the first mesh in order to cover the slit and reinforce the inguinal floor. This mesh was secured medially and laterally. With this, there was brought mesh coverage of the entire inguinal floor, as well as the internal ring. 0.25% Marcaine was injected into the operative space. The preperitoneal space was desufflated and the mesh was held in place and the peritoneum was seen to roll up over the mesh again with excellent coverage of the indirect and direct spaces. All trocars removed under direct vision. Anterior rectus fascia repaired with 0 Vicryl in a [id number] fashion. Skin was closed with 4-0 Vicryl. The patient tolerated the procedure well, was awakened and brought to recovery in stable condition. Joshua MD MELISSA Virk/POLA /10:14 AM /10:27 AM
== END | disposition home or self-care (01) ==
LOC: ESDC 07:24
PROVIDERS: ATTEND Surgery Trauma Surgery
DX: K40.91 Unilateral inguinal hernia, without obstruction or gangrene, recurrent (principal)
CPT/HCPCS: 00840; 49651; C1727; C1781; J0690; J1885; J2250; J2270; J2405; J3010; J7120

== ENCOUNTER 2017-06-29 12:50 | Emergency (ER) | payer OTHER ==
[~2017-06-29] VITALS: Ht 180.3 cm; Wt 93.0 kg
[~2017-06-29 12:50] MED LIST changes: -ACETAMINOPHEN/HYDROcodone 325 MG/5 MG TAB ONE; -ASPI81CH37 CHEW; +ASPI81CH6 CHEW; -BUPIVACAINE/EPINEPHRINE 0.5% 50 ML VIAL ONE; -ISOS30TA3 PO; -KETOROLAC TROMETHAMINE 30 MG/ML (IVP) VIAL IV PUSH ONE; -LACTATED RINGER'S 1000 ML INJ 1,000 ML ONE; -MIDAZOLAM HCL 2 MG/2 ML VIAL ONE; -MORPHINE SULFATE 4 MG/ML INJ ONE; -ONDANSETRON HCL 4 MG/2 ML VIAL IV PUSH ONE; -PROPOFOL 200 MG/20 ML AMP IV ONE; -ceFAZolin 2 GM PREMIX 50 ML ONE
[2017-06-29 12:55] VITALS: BP 189/84; PULSE 94; RESP 20; TEMP 98.1; O2SAT 94
[2017-06-29] MEDS ORDERED: OMEP20TA93 PO (13:11)
[2017-06-29] MEDS ORDERED: THEO1CAP3 PO (13:11)
[2017-06-29] MEDS ORDERED: CARV3.12 PO (13:11)
[2017-06-29] MEDS ORDERED: CEPH-460 PO (13:11)
[2017-06-29] MEDS ORDERED: LOSA25TA PO (13:11)
[2017-06-29] MEDS ORDERED: methylPREDNISolone SOD SUCC 125 MG/2 ML VIAL IV PUSH ONE (13:45)
[2017-06-29] MEDS ORDERED: SODIUM CHLORIDE 0.9% FLUSH 10 ML FLUSH IVF PRN (13:45)
[2017-06-29] MEDS: RESP: ALBUTEROL 2.5 MG/IPRATROPIUM 0.5 MG NEB (SCH) INH ×2 (13:46→13:47)
[2017-06-29 13:52] LABS: BLOOD GAS BASE EXCESS -0.3 mmol/L (-2-2); BLOOD GAS CARBOXYHEMOGLOBIN 1.1 % (0-4); BLOOD GAS HCO3 24 mmol/L (22-26); BLOOD GAS METHEMOGLOBIN 0.7 % (0-2); BLOOD GAS O2 HGB SATURATION 95 % (90-100); BLOOD GAS OXYGEN CONTENT 21.6 Vol % (12.0-20.0); BLOOD GAS PCO2 36 mmHG (38-42); BLOOD GAS PO2 85 mmHG (61-120); BLOOD GAS TOTAL HGB 16.2 G/DL (12.0-16.0); CRITICAL VALUE NO; DRAW SITE RT RADIAL; FIO2 21 %; NUMBER OF ARTERIAL PUNCTURES 1; OXYGEN DEVICE RA; STAT YES; TEMP CORR TO 98.6; ULNAR PULSE PRESENT
--- NOTE | 2017-06-29 13:55 | PD ---
HPI Chief Complaint: Cold / Flu Symptoms Time Seen by Provider: 13:39 Travel History International Travel<30 days: Yes Contact w/Intl Traveler<30days: Yes Name of Country Traveled to: [place] Traveled to known affect area: No History of Present Illness HPI Patient presents with persistent cough and subjective fever for one week. History of COPD. Reports initiation of Keflex and steroid taper on Friday without resolution of symptoms. In fact he states he is coughing worse and more frequently. Denies nausea or vomiting. Denies diarrhea. No new rashes. Denies malaise. PFSH Past Medical History Hx Anticoagulant Therapy: Yes (BABY ASA DAILY) Arthritis: Yes Asthma: Yes Autoimmune Disease: No Blood Disorders: No Anxiety: No Depression: No Heart Rhythm Problems: No Cancer: Yes (ON [id number] ) Cardiac Catheterization: Yes Cardiovascular Problems: Yes (CHOL) High Cholesterol: Yes Chemotherapy: No Chest Pain: Yes (MYOCARDITIS 2 YEARS AGO ) Congestive Heart Failure: Yes COPD: Yes Cerebrovascular Accident: No Coronary Artery Disease: Yes Diabetes: No Diminished Hearing: No Endocrine: No Gastrointestinal Disorders: Yes ( severe reflux) GERD: Yes Glaucoma: No Genitourinary: Yes Headaches: Yes Hepatitis: No Hiatal Hernia: Yes Hypertension: Yes Immune Disorder: No Implanted Vascular Access Dvce: Yes Kidney Stones: No Musculoskeletal: Yes Neurologic: Yes Psychiatric: No Reproductive: Yes Respiratory: Yes (COPD) Immunizations Current: Yes Migraines: Yes (SINCE SINUS SURGERY ) Myocardial Infarction: Yes (NOVEMBER 2009) Radiation Therapy: No Renal Failure: No Seizures: No Sickle Cell Disease: No Sleep Apnea: Yes Thyroid Disease: No Ulcer: No Tetanus Vaccination: < 5 Years Influenza Vaccination: Yes Past Surgical History Abdominal Surgery: Yes (HERNIA REPAIR) AICD: No Arteriovenous Shunt: No Body Medical Devices: left wrist hardware x3 cardiac stents Cardiac Surgery: Yes (STENTS-3X, VEINS REMOVED RIGHT LEG-CONCRETE POISIONING) Coronary Stent: Yes (X 3) Ear Surgery: Yes (cataracts bilat) Endocrine Surgery: No Genitourinary Surgery: Yes (TURP, 4 BLADDER NECK ) Gynecologic Surgery: No Insulin Pump: No Joint Replacement: No Neurologic Surgery: No Oral Surgery: Yes (ALL TEETH GONE ) Pacemaker: No Thoracic Surgery: No Other Surgery: Yes (INGUINAL HERNIA REPAIR) Social History Alcohol Use: No Tobacco Use: No Substance Use: No Allergies-Medications (Allergen,Severity, Reaction): Coded Allergies: No Known Allergies (Unverified Adverse Reaction, Unknown, 06/29/17) Reported Meds & Prescriptions Reported Meds & Active Scripts Active Reported Carvedilol 3.125 Mg Tab 3.125 Mg PO BID Losartan (Losartan Potassium) 25 Mg Tab 25 Mg PO DAILY Keflex (Cephalexin) 500 Mg Capsule 500 Mg PO Q8H Omeprazole 20 Mg Tab 20 Mg PO BID Manoj-24 (Theophylline) 300 Mg Cap 300 Mg PO DAILY [place]-3 Fish Oil/Vitamin (Fish Oil-Cholecalciferol) 1,000-1,000 Mg Cap 1 Cap PO DAILY Ventolin Hfa 18 GM Inh (Albuterol Sulfate) 90 Mcg/Act Aer 1 Puff INH Q4H PRN Breo Ellipta Inh (Fluticasone/Vilanterol) 100-25 Mcg/Act Inh 1 Puff INH DAILY Use daily at the same time. Spiriva Handihaler (Tiotropium Inh) 18 Mcg Cap 18 Mcg INH DAILY 1 capsule = 18 mcg Aspirin Low Dose (Aspirin) 81 Mg Chew 81 Mg CHEW DAILY Ranitidine (Ranitidine HCl) 150 Mg Tab 300 Mg PO HS Lipitor (Atorvastatin Calcium) 80 Mg Tab 80 Mg PO HS Review of Systems General / Constitutional: Positive: Fever Eyes: No: Visual changes HENT: No: Headaches Cardiovascular: No: Chest Pain or Discomfort Respiratory: Positive: Cough, Shortness of Breath Gastrointestinal: No: Abdominal Pain Genitourinary: No: Dysuria Musculoskeletal: No: Pain Skin: No Rash Neurologic: No: Weakness Psychiatric: No: Depression Endocrine: No: Polydipsia Hematologic/Lymphatic: No: Easy Bruising Physical Exam Narrative GENERAL: Well-nourished, well-developed patient. SKIN: Focused skin assessment warm/dry. HEAD: Normocephalic. EYES: No scleral icterus. No injection or drainage. NECK: Supple, trachea midline. No JVD or lymphadenopathy. CARDIOVASCULAR: Regular rate and rhythm without murmurs, gallops, or rubs. RESPIRATORY: Persistent cough, decreased breath sounds in all [place] GASTROINTESTINAL: Abdomen soft, non-tender, nondistended. MUSCULOSKELETAL: No cyanosis, or edema. BACK: Nontender without obvious deformity. No CVA tenderness. Data Data Last Documented VS Vital Signs Date Time Temp Pulse Resp B/P (MAP) Pulse Ox O2 Delivery O2 Flow Rate FiO2 06/29/17 13:12 18 99 Room Air 06/29/17 12:55 98.1 94 189/84 (119) Orders Orders Complete Blood Count With Diff (06/29/17 13:39) Comprehensive Metabolic Panel (06/29/17 13:39) D-Dimer (06/29/17 13:39) Ckmb (Isoenzyme) Profile (06/29/17 13:39) Troponin I (06/29/17 13:39) Arterial Blood Gas (Abg) (06/29/17 13:39) Blood Culture (06/29/17 13:39) Iv Access Insert/Monitor (06/29/17 13:39) Ecg Monitoring (06/29/17 13:39) Oximetry (06/29/17 13:39) Oxygen Administration (06/29/17 13:39) Chest, Single Ap (06/29/17 13:39) Sodium Chloride 0.9% Flush (Ns Flush) (06/29/17 13:45) Methylprednisolone So Succ Inj (Solumedr (06/29/17 13:45) Albuterol-Ipratropium Neb (Duoneb Neb) (06/29/17 13:45) Azithromycin Inj (Zithromax Inj) (06/29/17 14:15) CKMB (06/29/17 14:45) CKMB% (06/29/17 14:45) Labs Laboratory Tests Test 06/29/17 13:45 06/29/17 13:55 06/29/17 14:45 Blood Gas Puncture Site RT RADIAL Blood Gas Patient Temperature 98.6 Blood Gas HCO3 24 mmol/L Blood Gas Base Excess -0.3 mmol/L Blood Gas Oxygen Saturation 95 % Arterial Blood pH 7.43 Arterial Blood Partial Pressure CO2 36 mmHG Arterial Blood Partial Pressure O2 85 mmHG Arterial Blood Oxygen Content 21.6 Vol % Arterial Blood Carboxyhemoglobin 1.1 % Arterial Blood Methemoglobin 0.7 % Blood Gas Hemoglobin 16.2 G/DL Oxygen Delivery Device RA Blood Gas Inspired Oxygen 21 % White Blood Count 11.2 TH/MM3 Red Blood Count 5.55 MIL/MM3 Hemoglobin 16.2 GM/DL Hematocrit 50.1 % Mean Corpuscular Volume 90.3 FL Mean Corpuscular Hemoglobin 29.2 PG Mean Corpuscular Hemoglobin Concent 32.4 % Red Cell Distribution Width 13.2 % Platelet Count 313 TH/MM3 Mean Platelet Volume 7.5 FL Neutrophils (%) (Auto) 64.2 % Lymphocytes (%) (Auto) 25.5 % Monocytes (%) (Auto) 7.7 % Eosinophils (%) (Auto) 1.3 % Basophils (%) (Auto) 1.3 % Neutrophils # (Auto) 7.2 TH/MM3 Lymphocytes # (Auto) 2.9 TH/MM3 Monocytes # (Auto) 0.9 TH/MM3 Eosinophils # (Auto) 0.1 TH/MM3 Basophils # (Auto) 0.1 TH/MM3 CBC Comment DIFF FINAL Differential Comment D-Dimer Quantitative (PE/DVT) 0.22 MG/L FEU Troponin I LESS THAN 0.02 NG/ML Blood Urea Nitrogen 23 MG/DL Creatinine 1.20 MG/DL Random Glucose 97 MG/DL Total Protein 6.3 GM/DL Albumin 3.0 GM/DL Calcium Level 8.4 MG/DL Alkaline Phosphatase 81 U/L Aspartate Amino Transf (AST/SGOT) 25 U/L Alanine Aminotransferase (ALT/SGPT) 28 U/L Total Bilirubin 0.9 MG/DL Sodium Level 139 MEQ/L Potassium Level 4.1 MEQ/L Chloride Level 106 MEQ/L Carbon Dioxide Level 24.6 MEQ/L Anion Gap 8 MEQ/L Estimat Glomerular Filtration Rate 60 ML/MIN Total Creatine Kinase 338 U/L MDM Medical Decision Making Medical Screen Exam Complete: Yes Emergency Medical Condition: Yes Differential Diagnosis Pneumonia, COPD exacerbation, bronchitis, bronchospasm Narrative Course Assessment and plan discussed with patient and at bedside. Air movement improved with DuoNeb treatment. Cough improved. Resting comfortably. 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 Return emergently onset of new symptoms. Med/Other Pt SpecificInfo: Prescription(s) given Scripts Guaifenesin-Codeine Liq (Cheratussin AC Liq) 100-10 Mg/5 Ml Syrp 10 ML PO Q4H Y for COUGH AND COLD SYMPTOMS, #240 ML 0 Refills Do not exceed 6 doses/24 hrs. Prov: Abraham Sanches MD 06/29/17 Ipratropium-Albuterol Neb (Duoneb) 0.5-2.5 Mg/3 Ml Neb 1 NEBULE INH Q4HR NEB for SHORTNESS OF BREATH, #20 NEBULE 0 Refills Prov: Abraham Sanches MD 06/29/17 Prednisone (48) 10 mg tab Dose Pack (Prednisone (48) 10 mg tab Dose Pack) 10 Mg Dspk 10 MG PO DIRECTED for Inflammation, #1 DSPK 0 Refills Prov: Abraham Sanches MD 06/29/17 Azithromycin (Zithromax) 500 Mg Tab 500 MG PO DAILY for Infection, #7 TAB 0 Refills Prov: Abraham Sanches MD 06/29/17 Disposition: 01 DISCHARGE HOME Condition: Good Abraham Sanches MD Jun 29, 2017 13:55
--- NOTE | 2017-06-29 14:06 | RADRPT ---
EXAM DATE/TIME: 06/29/2017 13:58 [facility] COMPARISON: CHEST SINGLE AP, August 14, 2016, 17:39. INDICATIONS : Short of breath, cough MEDICAL HISTORY : Chronic obstructive pulmonary disease. Myocardial infarction. SURGICAL HISTORY : Cardiac stent ENCOUNTER: Initial ACUITY: 1 week PAIN SCORE: 5/10 LOCATION: Bilateral chest FINDINGS: A single view of the chest demonstrates the lungs to be symmetrically aerated without evidence of mas s, infiltrate or effusion. Mild linear bibasilar atelectasis. The cardiomediastinal contours are unre markable. Osseous structures are intact. CONCLUSION: 1. Mild linear bibasilar atelectasis. 2. Otherwise, no significant change compared to the prior examination. Lionel Lentz MD on June 29, 2017 at 14:04 Board Certified Radiologist. This report was verified electronically.
[2017-06-29 14:07] LABS: AUTOMATED NEUTROPHIL # 7.2 TH/MM3 (1.8-7.7); BASOPHIL # 0.1 TH/MM3 (0-0.2); BASOPHIL % 1.3 % (0.0-2.0); EOSINOPHIL # 0.1 TH/MM3 (0-0.4); EOSINOPHIL % 1.3 % (0.0-4.0); HEMATOCRIT 50.1 % (39.0-51.0); LYMPH % 25.5 % (9.0-44.0); LYMPHOCYTE # 2.9 TH/MM3 (1.0-4.8); MEAN CELL VOLUME 90.3 FL (80.0-100.0); MEAN CORPUSCULAR HEMOGLOBIN 29.2 PG (27.0-34.0); MEAN CORPUSCULAR HGB CONC 32.4 % (32.0-36.0); MONO % 7.7 % (0.0-8.0); NEUT % 64.2 % (16.0-70.0); PLATELET COUNT 313 TH/MM3 (150-450); RED BLOOD COUNT 5.55 MIL/MM3 (4.50-5.90); RED CELL DISTRIBUTION WIDTH 13.2 % (11.6-17.2); WHITE BLOOD COUNT 11.2 TH/MM3 (4.0-11.0)
[2017-06-29 14:14] LABS: HEMO FLAGS DIFF FINAL
[2017-06-29] MEDS ORDERED: AZITHROMYCIN INJ 500 MG in SODIUM CHLOR 0.9% 250 ML INJ 250 ML IV ONE (14:15)
[2017-06-29 15:06] LABS: ANION GAP 8 MEQ/L (5-15); BICARBONATE 24.6 MEQ/L (21.0-32.0); CHLORIDE 106 MEQ/L (98-107); SODIUM (NA) 139 MEQ/L (136-145)
[2017-06-29 15:07] LABS: BLOOD UREA NITROGEN 23 MG/DL (7-18); POTASSIUM 4.1 MEQ/L (3.5-5.1)
[2017-06-29 15:14] LABS: ALKALINE PHOSPHATASE 81 U/L (45-117); ALT (GPT) 28 U/L (12-78); AST (GOT) 25 U/L (15-37); CREATINE KINASE 338 U/L (39-308); GLOMERULAR FILTRATION RATE 60 ML/MIN (>89); TOTAL BILIRUBIN ADULT 0.9 MG/DL (0.2-1.0)
[2017-06-29 15:32] LABS: CKMB 2.3 NG/ML (0.5-3.6)
[2017-06-29] MEDS ORDERED: PRED10PA2 PO (15:32)
[2017-06-29] MEDS ORDERED: ZITH500T PO (15:32)
[2017-06-29] MEDS ORDERED: IPRASOL INH (15:32)
[2017-06-29] MEDS ORDERED: CHERSYP2 PO (15:32)
[2017-06-29 15:35] VITALS: BP 113/72; PULSE 72; RESP 18; O2SAT 100
== END 2017-06-29 16:24 | disposition home or self-care (01) ==
LOC: PHED 12:50
DX: J44.1 Chronic obstructive pulmonary disease with (acute) exacerbation (principal); R50.9 Fever, unspecified; I11.0 Hypertensive heart disease with heart failure; E78.00 Pure hypercholesterolemia, unspecified; I50.9 Heart failure, unspecified; Z79.01 Long term (current) use of anticoagulants; Z79.899 Other long term (current) drug therapy
CPT/HCPCS: 36600; 71010; 80053; 82550; 82552; 82805; 84484; 85025; 85379; 87040; 94640; 94664; 96365; 96375; 99285; J0456; J2930; J7050

== ENCOUNTER 2017-10-30 09:45 | Emergency (ER) | payer OTHER ==
[~2017-10-30] VITALS: Ht 180.3 cm; Wt 91.0 kg
[~2017-10-30 09:45] MED LIST changes: +CARV3.12 PO; +CEPH-460 PO; +CHERSYP2 PO; +IPRASOL INH; +LOSA25TA PO; +OMEP20TA93 PO; +PRED10PA2 PO; +THEO1CAP3 PO; +ZITH500T PO
[2017-10-30 09:57] VITALS: BP 155/85; PULSE 70; RESP 16; TEMP 97.3; O2SAT 97
[2017-10-30] MEDS ORDERED: METHI10 PO (10:28)
[2017-10-30] MEDS ORDERED: LEVO500T8 PO (10:28)
[2017-10-30] MEDS ORDERED: CODEINE PO (10:28)
[2017-10-30] MEDS ORDERED: GUAIFENESIN PO (10:28)
[2017-10-30 10:55] VITALS: BP 165/89; PULSE 54; RESP 16; TEMP 97.3; O2SAT 95
[2017-10-30 11:06] VITALS: BP 151/87; PULSE 56; RESP 16; O2SAT 90
[2017-10-30 12:00] VITALS: BP 151/87; PULSE 50; RESP 16; O2SAT 96
--- NOTE | 2017-10-30 12:25 | PD ---
HPI Chief Complaint: Respiratory Symptoms Time Seen by Provider: 12:17 Travel History International Travel<30 days: No Contact w/Intl Traveler<30days: No Traveled to known affect area: No History of Present Illness HPI 71-year-old male says he has not been feeling well for about 5 or 6 days. He has a history of COPD. He says a COPD is secondary to smoking and also to exposure to concrete dust. He has also extensive cardiac history. He has had multiple myocardial infarctions and has stents in place. He says he has had 4 MIs in the past. Last Friday he had several episodes of hemoptysis. He went to see his doctor and was told he had pneumonia. He was put on prednisone 20 mg 3 times a day and Zithromax. He has had some nausea and vomiting and was not able to take all the prednisone. He had an x-ray done yesterday and was told that he had pneumonia PFSH Past Medical History Hx Anticoagulant Therapy: Yes (asa 81mg) Arthritis: Yes Asthma: Yes Autoimmune Disease: No Blood Disorders: No Anxiety: No Depression: No Heart Rhythm Problems: No Cancer: Yes (ON [id number] ) Cardiac Catheterization: Yes Cardiovascular Problems: Yes (htn on meds, [place] -4, stents x 3) High Cholesterol: Yes Chemotherapy: No Chest Pain: Yes (MYOCARDITIS 2 YEARS AGO ) Congestive Heart Failure: Yes COPD: Yes Cerebrovascular Accident: No Coronary Artery Disease: Yes Diabetes: No Diminished Hearing: No Endocrine: No Gastrointestinal Disorders: Yes ( severe reflux) GERD: Yes Glaucoma: No Genitourinary: Yes Headaches: Yes Hepatitis: No Hiatal Hernia: Yes Hypertension: Yes Immune Disorder: No Implanted Vascular Access Dvce: Yes Kidney Stones: No Musculoskeletal: Yes Neurologic: Yes Psychiatric: No Reproductive: Yes Respiratory: Yes (copd) Immunizations Current: Yes Migraines: Yes (SINCE SINUS SURGERY ) Myocardial Infarction: Yes (NOVEMBER 2009) Radiation Therapy: No Renal Failure: No Seizures: No Sickle Cell Disease: No Sleep Apnea: Yes Thyroid Disease: No Ulcer: No Past Surgical History Abdominal Surgery: Yes (HERNIA REPAIR) AICD: No Arteriovenous Shunt: No Body Medical Devices: left wrist hardware x3 cardiac stents Cardiac Surgery: Yes (STENTS-3X, VEINS REMOVED RIGHT LEG-CONCRETE POISIONING) Coronary Stent: Yes (X 3) Ear Surgery: Yes (cataracts bilat) Endocrine Surgery: No Genitourinary Surgery: Yes (TURP, 4 BLADDER NECK ) Gynecologic Surgery: No Insulin Pump: No Joint Replacement: No Neurologic Surgery: No Oral Surgery: Yes (ALL TEETH GONE ) Pacemaker: No Thoracic Surgery: No Other Surgery: Yes (INGUINAL HERNIA REPAIR) Social History Alcohol Use: No Tobacco Use: No Substance Use: No Allergies-Medications (Allergen,Severity, Reaction): Coded Allergies: No Known Allergies (Unverified Adverse Reaction, Unknown, 10/30/17) Reported Meds & Prescriptions Reported Meds & Active Scripts Active Cheratussin AC Liq (Guaifenesin-Codeine Liq) 100-10 Mg/5 Ml Syrp 10 Ml PO Q4H PRN Do not exceed 6 doses/24 hrs. Duoneb (Ipratropium-Albuterol Neb) 0.5-2.5 Mg/3 Ml Neb 1 Nebule INH Q4HR NEB Prednisone (48) 10 mg tab Dose Pack (Prednisone) 10 Mg Dspk 10 Mg PO DIRECTED Reported Methimazole 10 Mg Tab 10 Mg PO DAILY Levofloxacin 500 Mg Tablet 500 Mg PO DAILY [Guiafenesin-Codeine] 10 Ml PO Q4H PRN Carvedilol 3.125 Mg Tab 3.125 Mg PO BID Losartan (Losartan Potassium) 25 Mg Tab 25 Mg PO DAILY Manoj-24 (Theophylline) 300 Mg Cap 300 Mg PO DAILY [place]-3 Fish Oil/Vitamin (Fish Oil-Cholecalciferol) 1,000-1,000 Mg Cap 1 Cap PO DAILY Ventolin Hfa 18 GM Inh (Albuterol Sulfate) 90 Mcg/Act Aer 1 Puff INH Q4H PRN Breo Ellipta Inh (Fluticasone/Vilanterol) 100-25 Mcg/Act Inh 1 Puff INH DAILY Use daily at the same time. Spiriva Handihaler (Tiotropium Inh) 18 Mcg Cap 18 Mcg INH DAILY 1 capsule = 18 mcg Aspirin Low Dose (Aspirin) 81 Mg Chew 81 Mg CHEW DAILY Ranitidine (Ranitidine HCl) 150 Mg Tab 300 Mg PO HS Lipitor (Atorvastatin Calcium) 80 Mg Tab 80 Mg PO HS Review of Systems General / Constitutional: No: Fever, Chills Eyes: No: Diploplia HENT: No: Headaches Cardiovascular: No: Chest Pain or Discomfort Respiratory: Positive: Cough Gastrointestinal: No: Nausea, Vomiting Genitourinary: No: Urgency, Frequency Musculoskeletal: No: Myalgias Skin: No Rash, No Itching Hematologic/Lymphatic: No: Easy Bruising Physical Exam Narrative GENERAL: Well-developed male SKIN: Focused skin assessment warm/dry. HEAD: Atraumatic. Normocephalic. EYES: Pupils equal and round. No scleral icterus. No injection or drainage. ENT: No nasal bleeding or discharge. Mucous membranes pink and moist. NECK: Trachea midline. No JVD. CARDIOVASCULAR: Regular rate and rhythm. No murmur appreciated. RESPIRATORY: No accessory muscle use. Clear to auscultation. Breath sounds equal bilaterally. GASTROINTESTINAL: Abdomen soft, non-tender, nondistended. Hepatic and splenic margins not palpable. MUSCULOSKELETAL: No obvious deformities. No clubbing. No cyanosis. No edema. NEUROLOGICAL: Awake and alert. No obvious cranial nerve deficits. Motor grossly within normal limits. Normal speech. PSYCHIATRIC: Appropriate mood and affect; insight and judgment normal. Data Data Last Documented VS Vital Signs Date Time Temp Pulse Resp B/P (MAP) Pulse Ox O2 Delivery O2 Flow Rate FiO2 10/30/17 13:29 59 20 163/97 (119) 97 Nasal Cannula 2.00 10/30/17 10:55 97.3 Orders Orders Electrocardiogram (10/30/17 12:17) Complete Blood Count With Diff (10/30/17 12:17) Comprehensive Metabolic Panel (10/30/17 12:17) Troponin I (10/30/17 12:17) B-Type Natriuretic Peptide (10/30/17 12:17) Ct Pulmonary Angiogram (10/30/17 12:21) Iohexol 350 Inj (Omnipaque 350 Inj) (10/30/17 13:16) Labs Laboratory Tests Test 10/30/17 12:25 White Blood Count 12.7 TH/MM3 Red Blood Count 4.98 MIL/MM3 Hemoglobin 15.1 GM/DL Hematocrit 45.0 % Mean Corpuscular Volume 90.4 FL Mean Corpuscular Hemoglobin 30.4 PG Mean Corpuscular Hemoglobin Concent 33.6 % Red Cell Distribution Width 13.3 % Platelet Count 291 TH/MM3 Mean Platelet Volume 7.3 FL Neutrophils (%) (Auto) 85.1 % Lymphocytes (%) (Auto) 8.5 % Monocytes (%) (Auto) 4.5 % Eosinophils (%) (Auto) 0.0 % Basophils (%) (Auto) 1.9 % Neutrophils # (Auto) 10.8 TH/MM3 Lymphocytes # (Auto) 1.1 TH/MM3 Monocytes # (Auto) 0.6 TH/MM3 Eosinophils # (Auto) 0.0 TH/MM3 Basophils # (Auto) 0.2 TH/MM3 CBC Comment DIFF FINAL Differential Comment Blood Urea Nitrogen 22 MG/DL Creatinine 1.20 MG/DL Random Glucose 110 MG/DL Total Protein 6.4 GM/DL Albumin 3.1 GM/DL Calcium Level 8.4 MG/DL Alkaline Phosphatase 92 U/L Aspartate Amino Transf (AST/SGOT) 17 U/L Alanine Aminotransferase (ALT/SGPT) 30 U/L Total Bilirubin 1.2 MG/DL Sodium Level 141 MEQ/L Potassium Level 4.4 MEQ/L Chloride Level 108 MEQ/L Carbon Dioxide Level 25.4 MEQ/L Anion Gap 8 MEQ/L Estimat Glomerular Filtration Rate 60 ML/MIN Troponin I LESS THAN 0.02 NG/ML B-Type Natriuretic Peptide 53 PG/ML MDM Medical Decision Making Medical Screen Exam Complete: Yes Emergency Medical Condition: Yes Medical Record Reviewed: Yes Differential Diagnosis Differential includes pulmonary embolus, tumor, pneumonia Narrative Course Patient had his chest x-ray yesterday which reportedly showed pneumonia. I was not able to see the x-ray. He did have hemoptysis the other night so I ordered a CT scan to assess for pulmonary embolus or tumor and the CT is negative for embolism and tumor. There is a small area of infiltrate on the right side. Patient is currently on Levaquin and Zithromax. He is stable for discharge Diagnosis Primary Impression: Pneumonia Additional Instructions: Take medications as directed Disposition: 01 DISCHARGE HOME Condition: Stable Carlo Kruse MD Oct 30, 2017 12:25
[2017-10-30 12:36] LABS: AUTOMATED NEUTROPHIL # 10.8 TH/MM3 (1.8-7.7); BASOPHIL # 0.2 TH/MM3 (0-0.2); BASOPHIL % 1.9 % (0.0-2.0); HEMOGLOBIN 15.1 GM/DL (13.0-17.0); LYMPH % 8.5 % (9.0-44.0); LYMPHOCYTE # 1.1 TH/MM3 (1.0-4.8); MEAN CELL VOLUME 90.4 FL (80.0-100.0); MEAN CORPUSCULAR HEMOGLOBIN 30.4 PG (27.0-34.0); MEAN CORPUSCULAR HGB CONC 33.6 % (32.0-36.0); MEAN PLATELET VOLUME 7.3 FL (7.0-11.0); MONO % 4.5 % (0.0-8.0); MONOCYTE # 0.6 TH/MM3 (0-0.9); NEUT % 85.1 % (16.0-70.0); PLATELET COUNT 291 TH/MM3 (150-450); RED BLOOD COUNT 4.98 MIL/MM3 (4.50-5.90); RED CELL DISTRIBUTION WIDTH 13.3 % (11.6-17.2); WHITE BLOOD COUNT 12.7 TH/MM3 (4.0-11.0)
[2017-10-30 12:45] LABS: CHLORIDE 108 MEQ/L (98-107); SODIUM (NA) 141 MEQ/L (136-145)
[2017-10-30 12:49] LABS: CALCIUM 8.4 MG/DL (8.5-10.1)
[2017-10-30 12:50] LABS: ALBUMIN 3.1 GM/DL (3.4-5.0); BICARBONATE 25.4 MEQ/L (21.0-32.0); BLOOD UREA NITROGEN 22 MG/DL (7-18); GLUCOSE,RANDOM 110 MG/DL (74-106)
[2017-10-30 12:53] LABS: ALT (GPT) 30 U/L (12-78); AST (GOT) 17 U/L (15-37); GLOMERULAR FILTRATION RATE 60 ML/MIN (>89)
[2017-10-30 12:55] LABS: TOTAL BILIRUBIN ADULT 1.2 MG/DL (0.2-1.0); TOTAL PROTEIN 6.4 GM/DL (6.4-8.2)
[2017-10-30 12:56] LABS: ALKALINE PHOSPHATASE 92 U/L (45-117)
[2017-10-30 12:58] LABS: TROPONIN I LESS THAN 0.02 NG/ML (0.02-0.05)
[2017-10-30] MEDS ORDERED: IOHEXOL 350 MG/ML 10 ML VIAL (for RAD DIAG) IVCONTRAST ONE (13:16)
[2017-10-30 13:29] VITALS: BP 163/97; PULSE 59; RESP 20; O2SAT 97
--- NOTE | 2017-10-30 13:37 | RADRPT ---
EXAM DATE/TIME: 10/30/2017 13:07 [facility] COMPARISON: CT PULMONARY ANGIOGRAM, February 21, 2015, 19:26. INDICATIONS : Short of breath. Cough. Hemoptysis. IV CONTRAST: 75 cc Omnipaque 350 (iohexol) IV RADIATION DOSE: 17.96 CTDIvol (mGy) MEDICAL HISTORY : Chronic obstructive pulmonary disease. Gastroesophageal reflux disease. Congestive heart failure.Hype rtension. Myocardial infarction. Myocarditis. SURGICAL HISTORY : Coronary artery stent. ENCOUNTER: Initial ACUITY: 4 - 6 days PAIN SCALE: 5/10 LOCATION: Bilateral chest TECHNIQUE: Volumetric scanning of the chest was performed using a pulmonary embolism protocol MIP images were re constructed. Using automated exposure control and adjustment of the mA and/or kV according to patien t size, radiation dose was kept as low as reasonably achievable to obtain optimal diagnostic quality images. DICOM format image data is available electronically for review and comparison. Follow-up recommendations for detected pulmonary nodules are based at a minimum on nodule size and pa tient risk factors according to Fleischner Society Guidelines. FINDINGS: PULMONARY ARTERIES: No filling defects are seen in the pulmonary arteries through the segmental level. LUNGS: Focal patchy infiltrate is noted within the right posterior lower lobe consistent with atelectasis an d/or mild infiltrate. Underlying emphysematous changes are noted bilaterally. Scarring is noted withi n the apices bilaterally. No pulmonary nodule or mass is noted. PLEURAE: There is no pleural thickening or pleural effusion. MEDIASTINUM: There is good visualization of the great vessels of the middle mediastinum. No evidence of mediastin al or hilar adenopathy/mass. Cardiomegaly and coronary artery calcifications are noted. MUSCULOSKELETAL: Degenerative changes are noted throughout the thoracic spine. MISCELLANEOUS: The visualized upper abdominal organs demonstrate no acute abnormality. There is a stable 8 mm low de nsity lesion within left lobe of the liver consistent with probable benign nodule or cyst. CONCLUSION: 1. No evidence of pulmonary embolism. 2. Focal patchy infiltrate within the posterior aspect of the right lower lobe consistent with atelec tasis and/or pneumonia. Clinical correlation is recommended. 3. Stable emphysematous changes and scattered fibrotic scarring. 4. Cardiomegaly and coronary artery calcifications. 5. Stable 8 mm low density lesion within left lobe of the liver consistent with benign nodule or cyst . Arron Kent MD on October 30, 2017 at 13:29 Board Certified Radiologist. This report was verified electronically.
--- NOTE | 2017-10-30 21:36 | EKG ---
Date Performed: 10/30/2017 Time Performed: 09:51:20 PTAGE: 71 years EKG: SINUS BRADYCARDIA MARKED LEFT AXIS DEVIATION MODERATE INTRAVENTRICULAR CONDUCTION DELAY Com pared to previous tracing, sinus rate is slightly slower ABNORMAL ECG PREVIOUS TRACING : 10/15/2016 12.00 DOCTOR: Graham Castro Interpretating Date/Time 10/30/2017 21:34:54
[2017-10-31] MEDS ORDERED: GUAISYP4 PO (12:31)
== END 2017-10-30 14:35 | disposition home or self-care (01) ==
LOC: PHED 09:45
DX: J18.9 Pneumonia, unspecified organism (principal); J44.0 Chronic obstructive pulmonary disease with (acute) lower respiratory infection; R94.31 Abnormal electrocardiogram [ECG] [EKG]; R04.2 Hemoptysis; I11.0 Hypertensive heart disease with heart failure; I50.9 Heart failure, unspecified; I25.10 Atherosclerotic heart disease of native coronary artery without angina pectoris; E78.00 Pure hypercholesterolemia, unspecified; I25.2 Old myocardial infarction
CPT/HCPCS: 71275; 80053; 83880; 84484; 85025; 93005; 99285; Q9967

== ENCOUNTER 2018-07-19 15:31 | Inpatient (IN) ==
--- NOTE | 2018-07-19 16:03 | XR ---
EXAM DATE: 07/19/2018 3:54 PM EST AGE/SEX: 72 years / Male INDICATIONS: Chest pain CLINICAL DATA: This is the patient's initial encounter. Patient reports that signs and symptoms have been present for 1 day and indicates a pain score of 10/10. MEDICAL/SURGICAL HISTORY: . Chronic obstructive pulmonary disease. Myocardial infarction. . C ardiac stent COMPARISON: POI, XR CHEST PA AND LAT, 06/22/2018. . FINDINGS: A single AP view of the chest demonstrates the lungs to be symmetrically aerated without evidence of mass, infiltrate or effusion. The cardiomediastinal contours are unremarkable. Osseous structures a re intact. CONCLUSION: No evidence of acute cardiopulmonary process. Electronically signed by: Faisal De La Rosa MD Board Certified Radiologist 07/19/2018 4:02 PM EST
[2018-07-19] MEDS ORDERED: Morphine Inj 4 MG, Morphine Inj 2 MG IV.PUSH ONE ×2 (16:24)
[2018-07-19 16:30] LABS: Baso % (Auto) 0.1 % (0.0-2.0); Eos # (Auto) 0.1 th/mm3 (0.0-0.4); Eos % (Auto) 0.5 % (0.0-4.0); Hemoglobin 14.9 gm/dL (13.0-17.0); Lymph # (Auto) 2.4 th/mm3 (1.0-4.8); Mean Corpuscular HGB Conc 34.7 % (32.0-36.0); Mean Corpuscular Hemoglobin 32.2 pg (27.0-34.0); Mean Corpuscular Volume 92.7 fL (80.0-100.0); Mean Platelet Volume 7.4 fL (7.0-11.0); Mono # (Auto) 0.9 th/mm3 (0.0-0.9); Mono % (Auto) 7.9 % (0.0-8.0); Neut # (Auto) 8.5 th/mm3 (1.8-7.7); Neut % (Auto) 71.5 % (16.0-70.0); Platelet Count 270 th/mm3 (150-450); Red Blood Count 4.64 mil/mm3 (4.50-5.90); Red Cell Distribution Width 14.8 % (11.6-17.2); White Blood Count 11.9 th/mm3 (4.0-11.0)
[2018-07-19] MEDS ORDERED: Morphine Inj 4 MG/ML Vial IV.PUSH ONE ×2 (16:30→19:11)
--- NOTE | 2018-07-19 16:36 | ED ---
HPI General Chief complaint: Chest Pain Stated complaint: chest pain Time Seen by Provider: 07/19/18 15:45 History of Present Illness HPI narrative: Patient is a 72-year-old male presents emergency department for evaluation of chest pain center of his chest rating down the left arm which started a few hours prior to arrival in the emergency department. Patient states he had pain just like this in the past when he had an NM and had stents placed by Dr. Sullivan at this institution. Patient is pain severe, center of his chest, crushing, associated with some shortness of breath and mild nausea but no vomiting. He tried some nitroglycerin and aspirin at home with no relief. Denies any abdominal pain denies any radiation to his back. Related Data Home Medications Medication Instructions Recorded Confirmed atorvastatin 80 mg PO DAILY 07/19/18 07/19/18 carvedilol 3.125 mg PO BID 07/19/18 07/19/18 losartan 25 mg PO DAILY 07/19/18 07/19/18 methimazole 10 mg PO DAILY 07/19/18 07/19/18 nitroglycerin 0.4 mg SUBLINGUAL Q5-15M PRN 07/19/18 07/19/18 omeprazole 20 mg PO DAILY 07/19/18 07/19/18 ranitidine HCl 300 mg PO DAILY 07/19/18 07/19/18 Allergies Allergy/AdvReac Type Severity Reaction Status Date / Time No Known Allergies Allergy Verified 07/19/18 15:43 Review of Systems ROS: all other systems reviewed are negative [facility] Medical History Medical History COPD (chronic obstructive pulmonary disease) (Acute) GERD (gastroesophageal reflux disease) (Acute) High cholesterol (Acute) History of heart attack (Acute) Surgical History Surgical History H/O heart artery stent (Acute) Social History Social History Substance History: No History of Abuse Smoking Status: Former smoker How Often Do You Have a Drink Containing Alcohol: Monthly or less Recent Travel in [place] within the Last 8 Weeks: No Recent Out of Country Travel within the Last 8 Weeks: No Immunization History Tetanus Immunization: Unsure Exam Narrative Exam Narrative: GENERAL: Well-developed well-nourished, appears uncomfortable. SKIN: Focused skin assessment warm/dry. HEAD: Atraumatic. Normocephalic. EYES: Pupils equal and round. No scleral icterus. No injection or drainage. ENT: No nasal bleeding or discharge. Mucous membranes pink and moist. NECK: Trachea midline. No JVD. CARDIOVASCULAR: Regular rate and rhythm. No murmur appreciated. 2+ pedal pulses in all 4 extremities, regular ate and rhythm. RESPIRATORY: No accessory muscle use. Clear to auscultation. Breath sounds equal bilaterally. GASTROINTESTINAL: Abdomen soft, non-tender, nondistended. Hepatic and splenic margins not palpable. MUSCULOSKELETAL: No obvious deformities. No clubbing. No cyanosis. No edema. NEUROLOGICAL: Awake and alert. No obvious cranial nerve deficits. Motor grossly within normal limits. Normal speech. PSYCHIATRIC: Appropriate mood and affect; insight and judgment normal. Course Initial Documented Vital Signs Temperature 98.8 F 07/19/18 15:37 Pulse Rate 86 07/19/18 15:37 Respiratory Rate 22 07/19/18 15:37 Blood Pressure 191/95 H 07/19/18 15:37 Pulse Oximetry 97 07/19/18 15:37 Last Documented Vital Signs Temperature 98.8 F 07/19/18 15:37 Pulse Rate 67 07/19/18 19:00 Respiratory Rate 20 07/19/18 19:00 Blood Pressure 177/92 H 07/19/18 19:00 Pulse Oximetry 96 07/19/18 19:00 Medical Decision Making MDM Narrative Medical decision making narrative: EKG shows left anterior fascicular block with normal sinus rhythm normal axis normal R wave progression. No concerning ST segment changes. Patient was brought to the emergency department, he appears significantly uncomfortable, morphine is all but completely resolved his pain. Given his level of uncomfortableness I think that a CTA for aortic dissection is indicated in this patient. EKG is not evolving in the emergency department. 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 He states that he had been traveling recently and had some sinus symptoms that is what was actually causing his pain. Unclear etiology at this time but his troponins have actually trended up slightly in the emergency department 0.18. He is much more comfortable after morphine. He was discussed with Dr. Jiménez for admission for further workup of his chest pain elevated troponins. Differential diagnosis includes coronary artery disease as well as myocarditis Medical Screen Exam Complete: Yes Emergency Medical Condition: Yes Lab Data Result diagrams: 12/30/18 16:02 07/19/18 16:02 Lab Results 07/19/18 07/19/18 07/19/18 Range/Units 16:02 16:02 17:55 WBC 11.9 H (4.0-11.0) th/mm3 RBC 4.64 (4.50-5.90) mil/mm3 Hgb 14.9 (13.0-17.0) gm/dL Hct 43.0 (39.0-51.0) % MCV 92.7 (80.0-100.0) fL MCH 32.2 (27.0-34.0) pg MCHC 34.7 (32.0-36.0) % RDW 14.8 (11.6-17.2) % Plt Count 270 (150-450) th/mm3 MPV 7.4 (7.0-11.0) fL Prelim Diff (Auto) Slide review pending Neut % (Auto) 71.5 H (16.0-70.0) % Lymph % (Auto) 20.0 (9.0-44.0) % [place] % (Auto) 7.9 (0.0-8.0) % Eos % (Auto) 0.5 (0.0-4.0) % Baso % (Auto) 0.1 (0.0-2.0) % Neut # (Auto) 8.5 H (1.8-7.7) th/mm3 Lymph # (Auto) 2.4 (1.0-4.8) th/mm3 [place] # (Auto) 0.9 (0.0-0.9) th/mm3 Eos # (Auto) 0.1 (0.0-0.4) th/mm3 Baso # (Auto) 0.0 (0.0-0.2) th/mm3 WBC Differential . Diff Scan Auto diff confirmed Differential Comment . Sodium 144 (136-145) meq/L Potassium 3.5 (3.5-5.1) meq/L Chloride 110 H (98-107) meq/L Carbon Dioxide 24.3 (21.0-32.0) meq/L Anion Gap 10 (5-15) meq/L BUN 27 H (7-18) mg/dL Creatinine 1.54 H (0.60-1.30) mg/dL Estimated GFR 45 L (>89) mL/min Random Glucose 132 H (74-106) mg/dL Calcium 8.3 L (8.5-10.1) mg/dL Total Bilirubin 1.1 H (0.2-1.0) mg/dL AST 23 (15-37) U/L ALT 36 (12-78) U/L Alkaline Phosphatase 74 (45-117) U/L Troponin I 0.02 0.18 H (0.02-0.05) ng/mL Total Protein 5.9 L (6.4-8.2) g/dL Albumin 3.0 L (3.4-5.0) g/dL Imaging Data Radiologist's impression: Chest X-Ray 07/19/18 15:45 CONCLUSION: No evidence of acute cardiopulmonary process. Thoracic Aorta CT 07/19/18 17:01 CONCLUSION: 1. Negative for aortic aneurysm or dissection the thorax and abdomen. 2. Severe coronary calcifications. 3. Colonic diverticulosis. Emphysema. Discharge Plan Discharge Disposition Patient Disposition: ED Admit(ED Internal Use Only) Discharge Condition Condition: Stable Discharge Order Discharge Orders: ED Use Only Admit Order (Routine); Ordered 07/19/18 Ordered By: Arron Vance Discharge Details Diagnosis: Acute non-ST elevation myocardial infarction (NSTEMI) Physicians Team ED Provider: Arron Vance Primary Care Provider: Jerome De La Paz V Rxs /Orders / Referrals /Forms Prescriptions: No Action atorvastatin 80 mg Tablet 80 mg PO DAILY RF: 0 carvedilol 3.125 mg Tablet 3.125 mg PO BID RF: 0 ranitidine HCl 300 mg Capsule 300 mg PO DAILY RF: 0 losartan 25 mg Tablet 25 mg PO DAILY RF: 0 nitroglycerin 0.4 mg Tablet, Sublingual 0.4 mg SUBLINGUAL Q5-15M PRN (Reason: Chest Pain) RF: 0 omeprazole 20 mg Capsule,Delayed Release(Dr/Ec) 20 mg PO DAILY RF: 0 methimazole 10 mg Tablet 10 mg PO DAILY RF: 0 Discharge Instructions Patient Printed Instructions: Chest Pain (ED) Status ED Status: Admitted Patient
[2018-07-19 16:51] LABS: Alanine Aminotransferase 36 U/L (12-78); Anion Gap 10 meq/L (5-15); Aspartate Aminotransferase 23 U/L (15-37); Blood Urea Nitrogen 27 mg/dL (7-18); Calcium 8.3 mg/dL (8.5-10.1); Carbon Dioxide 24.3 meq/L (21.0-32.0); Chloride 110 meq/L (98-107); Glomerular Filtration Rate 45 mL/min (>89); Glucose,Random 132 mg/dL (74-106); Potassium 3.5 meq/L (3.5-5.1); Sodium 144 meq/L (136-145)
[2018-07-19 16:52] LABS: Alkaline Phosphatase 74 U/L (45-117); Total Protein 5.9 g/dL (6.4-8.2); Troponin I 0.02 ng/mL (0.02-0.05)
[2018-07-19] MEDS ORDERED: Sodium Chlor 0.9% Inj 500 ML IV.SIG SCH (18:00)
--- NOTE | 2018-07-19 18:49 | CT ---
EXAM DATE: 07/19/2018 6:40 PM EST AGE/SEX: 72 years / Male INDICATIONS: Chest pain radiating to left arm; rule out aneurysm. CLINICAL DATA: This is the patient's initial encounter. Patient reports that signs and symptoms have been present for 1 day and indicates a pain score of 7/10. MEDICAL/SURGICAL HISTORY: Chronic obstructive pulmonary disease. Gastroesophageal reflux disease. Cardiovascular disease. Coronary artery stent. RADIATION DOSE: 8.25 CTDI (mGy) COMPARISON: No prior exams available for comparison. TECHNIQUE: Volumetric scanning was performed using a multi-row detector CT scanner during bolus infu tuan of 97 ml Omnipaque 350 (iohexol) nonionic water-soluble contrast as a single exam dose. The da ta was post processed with a variety of visualization algorithms including full volume maximum intens ity projection, multi-planar sliding thin slab reformation, curved planar reformation, and surface re ndering techniques. Using automated exposure control and adjustment of the mA and/or kV according to patient size, radiation dose was kept as low as reasonably achievable to obtain optimal diagnostic q uality images. DICOM format image data is available electronically for review and comparison. FINDINGS: There is no thoracic aortic aneurysm or dissection. Moderate coronary artery calcifications are prese nt. There is mild to moderate emphysema. Dependent atelectasis of the lungs. No acute findings within the abdomen and pelvis. Colonic diverticulosis without diverticulitis. No ac [place] findings in the solid viscera. No calcified gallstones. CONCLUSION: 1. Negative for aortic aneurysm or dissection the thorax and abdomen. 2. Severe coronary calcifications. 3. Colonic diverticulosis. Emphysema. Electronically signed by: Brooks Fabian MD Board Certified Radiologist 07/19/2018 6:47 PM EST
[2018-07-19] MEDS ORDERED: Morphine Sulfate Inj 2 MG/ML Vial IV.PUSH ONE (19:10)
[2018-07-19] MEDS ORDERED: Acetaminophen 325 MG Tablet PO PRN (20:11)
[2018-07-19] MEDS ORDERED: Bisacodyl 10 MG Supp RECTAL PRN (20:11)
[2018-07-19] MEDS ORDERED: Heparin 10,000 UNITS/10 ML Vial (for IV use) IV.PUSH STA (20:11)
[2018-07-19] MEDS ORDERED: Morphine Sulfate Inj 2 MG/ML Vial IV.PUSH PRN (20:11)
[2018-07-19] MEDS ORDERED: Heparin Drip 25,000 UNIT/250 ML BAG IV.CONT PRN (20:11)
--- NOTE | 2018-07-19 20:15 | P.HPIM ---
History of Present Illness Primary Care Physician: Jerome De La Paz MD History of Present Illness: This is a 80-year-old male with a PMH of HTN, Hyperlipidemia, COPD and CAD s/p Stent who presented to the ER w/ complaints of chest pain starting few hours prior to arrival. Notes chest pain is substernal , 8/10, w/ radiation to arm, feels symptoms similar to previous episodes. Follows w/ Dr. Sullivan as outpatient, states seen approx 6mo ago w/ normal exam. Took 2 ASA at home and given NTG/Morphine w/ some relief, pain now 5/10. On arrival, BP 191/95, HR 86, O2 sat 97% on RA, Afebrile. WBC 11.9. INR 1.0. Creatinine 1.54, previously 1.2 on 10/30/2017. Initial troponin 0 0.02, repeat 0.18. CXR with no acute findings. CTA Chest negative for aortic aneurysm or dissection. Diagnosis (1) NSTEMI (non-ST elevated myocardial infarction): (2) HTN (hypertension): (3) TRACY (acute kidney injury): Review of Systems PAST FAMILY HISTORY: Reviewed. No h/o DM or CAD Review of Systems: all other systems reviewed are negative [facility] Medical History Medical History COPD (chronic obstructive pulmonary disease) (Acute) GERD (gastroesophageal reflux disease) (Acute) High cholesterol (Acute) History of heart attack (Acute) Surgical History Surgical History H/O heart artery stent (Acute) Social History Social History Substance History: No History of Abuse Smoking Status: Former smoker How Often Do You Have a Drink Containing Alcohol: Monthly or less Recent Travel in [facility] within the Last 8 Weeks: No Recent Out of Country Travel within the Last 8 Weeks: No Immunization History Tetanus Immunization: Unsure Medications and Allergies Allergies Allergy/AdvReac Type Severity Reaction Status Date / Time No Known Allergies Allergy Verified 07/19/18 15:43 Home Medications Medication Instructions Recorded Confirmed Type atorvastatin 80 mg PO DAILY 07/19/18 07/19/18 History carvedilol 3.125 mg PO BID 07/19/18 07/19/18 History losartan 25 mg PO DAILY 07/19/18 07/19/18 History methimazole 10 mg PO DAILY 07/19/18 07/19/18 History nitroglycerin 0.4 mg SUBLINGUAL Q5-15M PRN 07/19/18 07/19/18 History omeprazole 20 mg PO DAILY 07/19/18 07/19/18 History ranitidine HCl 300 mg PO DAILY 07/19/18 07/19/18 History Active Medications: Active Medications Acetaminophen (Tylenol) 650 mg PO Q4H PRN PRN Reason: Temp > 100.4 Aspirin (Ecotrin) 81 mg PO DAILY KALPESH Bisacodyl (Dulcolax Supp) 10 mg RECTAL DAILY PRN PRN Reason: SEVERE CONSITIPATION Heparin Sodium (Porcine) (Heparin Inj) 4,000 units IV.PUSH NOW STA Stop: 07/19/18 20:12 Sodium Chloride (Ns Flush) 2 ml IV.FLUSH UNSCH PRN PRN Reason: FLUSH AFTER USING IV ACCESS Physical Exam Vital signs: Last Vital Signs Temp 98.8 F 07/19/18 15:37 Pulse 67 07/19/18 19:00 Resp 20 07/19/18 19:00 BP 177/92 H 07/19/18 19:00 Pulse Ox 96 07/19/18 19:00 Intake & Output 07/17/18 07/18/18 07/19/18 07/20/18 06:59 06:59 06:59 06:59 Intake Total 500 / 500 Balance 500 / 500 Weight 90.718 kg Narrative: PE: GENERAL: Very pleasant middle-aged white male in no acute distress. Family at bedside SKIN: Focused skin assessment warm and dry. HEENT: PERRLA, EOMI. No scleral icterus or conjunctival pallor. No lid lag or facial droop. CARDIOVASCULAR: Regular rate and rhythm. No obvious murmurs to auscultation. No chest tenderness to palpation. RESPIRATORY: No obvious rhonchi or wheezing. Clear to auscultation. Breath sounds equal bilaterally. GASTROINTESTINAL: Abdomen soft, non-tender, nondistended. BS normal. MUSCULOSKELETAL: Extremities without clubbing, cyanosis, or edema. No obvious deformities. NEUROLOGICAL: Awake, alert and oriented x4. No focal neurologic deficits. Moving both upper and lower extremities spontaneously. PSYCHIATRIC: Appropriate mood and affect. Insight and judgment normal. Results Labs CBC & Chem 7: 07/19/18 16:02 07/19/18 16:02 Imaging Impressions Chest X-Ray 07/19/18 15:45 CONCLUSION: No evidence of acute cardiopulmonary process. Thoracic Aorta CT 07/19/18 17:01 CONCLUSION: 1. Negative for aortic aneurysm or dissection the thorax and abdomen. 2. Severe coronary calcifications. 3. Colonic diverticulosis. Emphysema. Caprini VTE Risk Assessment Caprini VTE Risk Assessment: Moderate/High Risk (score >= 2) Caprini Risk Assessment Model: Point Value = 1 Point Value = 2 Point Value = 3 Point Value = 5 Age 41-60 Minor surgery BMI > 25 kg/m2 Swollen legs Varicose veins or History of unexplained or recurrent spontaneous Oral contraceptives or hormone replacement Sepsis (< 1 month) Serious lung disease, including pneumonia (< 1 month) Abnormal pulmonary function Acute myocardial infarction Congestive heart failure (< 1 month) History of inflammatory bowel disease Medical patient at bed rest Age 61-74 Arthroscopic surgery Major open surgery (> 45 min) Laparoscopic surgery (> 45 min) Malignancy Confined to bed (> 72 hours) Immobilizing plaster cast Central venous access Age >= 75 History of VTE Family history of VTE Factor V Leiden Prothrombin [id number] Lupus anticoagulant Anticardiolipin antibodies Elevated serum homocysteine Heparin-induced thrombocytopenia Other congenital or acquired thrombophilia Stroke (< 1 month) Elective arthroplasty Hip, pelvis, or leg fracture Acute spinal cord injury (< 1 month) Prophylaxis Regimen: Total Risk Factor Score Risk Level Prophylaxis Regimen 0-1 Low Early ambulation 2 Moderate Order ONE of the following: *Sequential Compression Device (SCD) *Heparin 5000 units SQ BID 3-4 Higher Order ONE of the following medications: *Heparin 5000 units SQ TID *Enoxaparin/Lovenox 40 mg SQ daily (WT < 150 kg, CrCl > 30 mL/min) *Enoxaparin/Lovenox 30 mg SQ daily (WT < 150 kg, CrCl > 10-29 mL/min) *Enoxaparin/Lovenox 30 mg SQ BID (WT < 150 kg, CrCl > 30 mL/min) AND/OR *Sequential Compression Device (SCD) 5 or more Highest Order ONE of the following medications: *Heparin 5000 units SQ TID (Preferred with Epidurals) *Enoxaparin/Lovenox 40 mg SQ daily (WT < 150 kg, CrCl > 30 mL/min) *Enoxaparin/Lovenox 30 mg SQ daily (WT < 150 kg, CrCl > 10-29 mL/min) *Enoxaparin/Lovenox 30 mg SQ BID (WT < 150 kg, CrCl > 30 mL/min) AND *Sequential Compression Device (SCD) Assessment and Plan (1) NSTEMI (non-ST elevated myocardial infarction): Code(s): I21.4 - Non-ST elevation (NSTEMI) myocardial infarction Status: Acute (2) HTN (hypertension): Code(s): I10 - Essential (primary) hypertension Status: Acute (3) TRACY (acute kidney injury): Code(s): N17.9 - Acute kidney failure, unspecified Status: Acute Plan A/P: 1. NSTEMI: acute onset of chest pain earlier today, initial trop negative, repeat trop 0.18, chest pain improved at this time. Start Heparin gtt, admit to [facility], telemetry, check serial cardiac enzymes for trend, continue NTG/Morphine , start ASA, Statin, Metoprolol, Consult Cardiology-follows w/ Dr. Sullivan as outpatient. 2. HTN: Uncontrolled. BP 190's, likely compounded by c/o pain, antihypertensives as needed, continue analgesics/antiemetics 3. TRACY: Creatinine 1.54, previously 1.20 on 10/30/17, IVF for hydration, monitor I/O, repeat labs in am. 4. DVT Prophylaxis: Heparin gtt 5. Social work for d/c planning as needed. 6. Case discussed w/ ER physician at length, labs/records/imaging reviewed by me.
--- NOTE | 2018-07-19 20:38 | ECG ---
Date Performed: 07/19/2018 Time Performed: 16:29:59 PTAGE: 72 years EKG: Sinus rhythm LEFT ANTERIOR FASCICULAR BLOCK CONSIDER INFERIOR INFARCT, AGE UNDETERMINED ABNORMAL ECG PREVIOUS TRACING : 07/19/2018 16.27 No signficant change from previous tracing noted. DOCTOR: Christiano Sullivan Interpretating Date/Time 07/19/2018 20:38:06
--- NOTE | 2018-07-19 20:41 | ECG ---
Date Performed: 07/19/2018 Time Performed: 15:40:47 PTAGE: 72 years EKG: Sinus rhythm LEFT ANTERIOR FASCICULAR BLOCK POSSIBLE INFERIOR MYOCARDIAL INFARCTION AGE UNDETERMINED PREVIOUS TRACING : 10/30/2017 09.51 Compared to previous tracing, heart rate has increase dJacinta DOCTOR: Christiano Sullivan Interpretating Date/Time 07/19/2018 20:40:24
[2018-07-19 20:42] LABS: Activated Partial Thrombo Time 20.6 sec (23.4-31.7)
[2018-07-19 20:49] LABS: Prothrombin Time 10.5 sec (9.8-11.6)
[2018-07-19] MEDS: Sod Chloride 0.9% Inj 1,000 ML IV.CONT SCH (22:00)
[2018-07-19] MEDS: Senna/Docusate Sodium 8.6/50 MG Tablet PO SCH (22:00)
--- NOTE | 2018-07-19 23:02 | ECG ---
Date Performed: 07/19/2018 Time Performed: 19:16:39 PTAGE: 72 years EKG: Sinus rhythm LEFT AXIS DEVIATION ABNORMAL ECG PREVIOUS TRACING : 07/19/2018 17.58 No significant change from previous tracing noted. DOCTOR: Christiano Sullivan Interpretating Date/Time 07/19/2018 23:00:20
--- NOTE | 2018-07-19 23:02 | ECG ---
Date Performed: 07/19/2018 Time Performed: 17:58:26 PTAGE: 72 years EKG: Sinus rhythm POSSIBLE INFERIOR MYOCARDIAL INFARCTION LEFT AXIS DEVIATION ABNORMAL ECG PREVIOUS TRACING : 07/19/2018 16.29 Compared to previous tracing, QRS voltage has increased in leads V4-V6. DOCTOR: Christiano Sullivan Interpretating Date/Time 07/19/2018 23:01:13
[2018-07-19] MEDS ORDERED: Metoprolol Tartrate 25 MG Tablet PO ONE (23:39)
[2018-07-20] MEDS: Sod Chloride 0.9% Inj 1,000 ML IV.CONT SCH (06:31)
[2018-07-20] MEDS ORDERED: Sod Chloride 0.9% Inj 1,000 ML IV.CONT SCH ×2 (08:00→12:00)
[2018-07-20] MEDS ORDERED: fentaNYL Citrate Inj 100 MCG/2 ML Ampul IV.PUSH SCH (08:00)
--- NOTE | 2018-07-20 08:32 | MB ---
cc: Christiano Sullivan MD DATE: 07/20/2018 REASON FOR CONSULTATION: [id number] myocardial infarction. HISTORY OF PRESENT ILLNESS: The patient is a 72-year-old white male with a history of coronary artery disease, COPD, hyperlipidemia, possible myocarditis 2013, sleep apnea, who was in his usual state of health up until yesterday afternoon when he began to experience severe substernal chest discomfort associated with shortness of breath and nausea radiating to his left arm. He had been having some twinges of similar chest discomfort over the past few days. This episode yesterday lasted at least 2 hours in a constant fashion. Currently, he denies chest pain, shortness of breath, dizziness, syncope, near syncope, palpitations, pedal edema, paroxysmal nocturnal dyspnea. PAST MEDICAL HISTORY: 1. Coronary artery disease, status post stent of the proximal LAD and mid right coronary artery 12/13/2009. His last heart catheterization was 10/15/2016, showing [id number] 3-vessel coronary artery disease with ejection fraction of 65%. 2. COPD. 3. Hyperlipidemia. 4. Sleep apnea. 5. Possible acute myocarditis 10/28/2013, at which time his troponin increased to 9.4, but cardiac catheterization showed no significant stenosis with widely patent LAD and right coronary stents. CARDIAC MEDICATIONS AT HOME: 1. Carvedilol 3.125 mg b.i.d. 2. Losartan 25 mg daily. 3. Atorvastatin 80 mg at bedtime. ALLERGIES: NO KNOWN DRUG ALLERGIES. FAMILY HISTORY: Noncontributory. SOCIAL HISTORY: The patient is a former smoker. He denies alcohol abuse. REVIEW OF SYSTEMS: As in the history of present illness, otherwise negative or noncontributory. He also denies headache, abdominal pain, melena, dyspepsia, bright red blood per rectum. PHYSICAL EXAMINATION: VITAL SIGNS: His blood pressure 129/84 with a pulse of 51, respirations 18. GENERAL: He is a well-developed, well-nourished white male, in no acute distress. NECK: Jugular venous pressure is normal. Carotid pulses are 2+ bilaterally and without bruits. CHEST: Reveals clear lungs robertson. CARDIAC: He has a regular rhythm and rate without S3, S4, or murmur. ABDOMEN: He has a soft, nontender abdomen. Bowel sounds are present. There is no definite hepatosplenomegaly. EXTREMITIES: Reveals no clubbing, cyanosis, or edema. DIAGNOSTIC DATA: EKG shows sinus bradycardia, left axis deviation, nonspecific intraventricular conduction delay. Chest x-ray shows no acute disease. Laboratory data includes WBC 11.9, hemoglobin 14.9, platelets 270. Potassium 3.5, BUN 27, creatinine 1.54. Troponin 2.39. IMPRESSION: Acute [id number] myocardial infarction in this 72-year-old white male with a history of coronary artery disease, hyperlipidemia, chronic obstructive pulmonary disease, sleep apnea, possible myocarditis in 2013. At this time, he is angina free. There is no evidence for acute congestive heart failure. EKG shows no acute ST segment or T-wave changes. Troponin level is consistent with acute myocardial infarction. His symptoms over the last few days are most consistent with angina in an unstable pattern. Because of the abnormal cardiac enzymes and the instability of his angina pattern, he has been recommended cardiac catheterization with possible percutaneous coronary intervention. The risks of these procedures have been outlined to the patient, who agrees to proceed. RECOMMENDATIONS: 1. Cardiac catheterization today. 2. Continue his usual home cardiac medications. MD MARISOL Gee/zechariah , 08:19 AM , 08:27 AM [email or web address]
[2018-07-20] MEDS: Senna/Docusate Sodium 8.6/50 MG Tablet PO SCH (08:35)
[2018-07-20 08:42] LABS: Baso % (Auto) 0.1 % (0.0-2.0); Eos # (Auto) 0.1 th/mm3 (0.0-0.4); Eos % (Auto) 1.6 % (0.0-4.0); Hematocrit 42.4 % (39.0-51.0); Hemoglobin 14.2 gm/dL (13.0-17.0); Lymph # (Auto) 2.1 th/mm3 (1.0-4.8); Lymph % (Auto) 29.4 % (9.0-44.0); Mean Corpuscular HGB Conc 33.6 % (32.0-36.0); Mean Corpuscular Hemoglobin 31.7 pg (27.0-34.0); Mean Corpuscular Volume 94.5 fL (80.0-100.0); Mean Platelet Volume 7.2 fL (7.0-11.0); Mono # (Auto) 0.7 th/mm3 (0.0-0.9); Mono % (Auto) 9.4 % (0.0-8.0); Neut # (Auto) 4.2 th/mm3 (1.8-7.7); Neut % (Auto) 59.5 % (16.0-70.0); Platelet Count 207 th/mm3 (150-450); Red Blood Count 4.49 mil/mm3 (4.50-5.90); White Blood Count 7.1 th/mm3 (4.0-11.0)
[2018-07-20 09:09] LABS: Albumin 2.7 g/dL (3.4-5.0); Anion Gap 7 meq/L (5-15); Aspartate Aminotransferase 28 U/L (15-37); Blood Urea Nitrogen 23 mg/dL (7-18); Carbon Dioxide 28.3 meq/L (21.0-32.0); Chloride 110 meq/L (98-107); Glomerular Filtration Rate 64 mL/min (>89); Glucose,Random 79 mg/dL (74-106); Sodium 145 meq/L (136-145)
[2018-07-20 09:10] LABS: Alanine Aminotransferase 31 U/L (12-78); Cholesterol 199 mg/dL (120-200); Triglycerides 77 mg/dL (42-150)
[2018-07-20 09:15] LABS: Alkaline Phosphatase 66 U/L (45-117); HDL Cholesterol 56.8 mg/dL (40.0-60.0); LDL Cholesterol,Calculated 127 mg/dL (0-99); Total Protein 5.1 g/dL (6.4-8.2)
[2018-07-20] MEDS ORDERED: fentaNYL Citrate Inj 100 MCG/2 ML Ampul ONE (09:16)
[2018-07-20] MEDS ORDERED: Heparin/NS PF Inj 1,000 ML ONE (09:16)
[2018-07-20] MEDS ORDERED: Heparin 10,000 UNITS/10 ML Vial (for IV use) ONE (09:17)
[2018-07-20 09:20] LABS: Troponin I 3.45 ng/mL (0.02-0.05)
[2018-07-20] MEDS ORDERED: Iohexol 350 MG/ML 50 ML Vial (for Cath Lab) IVCONTRAST ONE (10:00)
[2018-07-20 10:05] LABS: Lymphocytes 23 % (9-44); Monocytes 13 % (0-8); Myelocytes 2 % (0-0); Platelet Estimate Normal (Normal); Platelet Morphology Normal (Normal)
--- NOTE | 2018-07-20 10:17 | P.PNADD ---
Addendum to Inpatient Note Reason for Addendum: Additional Documentation Additional information: Cath today shows only mild disease, EF 60%. OK to discharge late today or tomorrow am on same home medications, daily aspirin.
--- NOTE | 2018-07-20 10:17 | CATHPROC ---
Snapshot Interactive HIS Report Study Information Study Number Admission Scheduled Start Study Start [id number] Jul 19 2018 8:12PM 07/20/2018 Jul 20 2018 9:17AM Study Type [place] Service Left/Possible PCI Cardiac Catheterization Admit Source Facility Department Emergency department [facility] - Health Program Manager Physician and Clinical Staff Initial Christiano Osullivan Minister Of Religion Jignesh CHAVEZ, Davon Minister Of ReligionHuma Kern BSN Recorder Bev Black RCIS TECH2 Scrub Ata Willis RCIS(BS) Procedures Performed Procedure Location (Site) Vessel Name Coronary Angiograms LCA Left Coronary Coronary Angiograms RCA Right Coronary LV Gram-hand inj. LV LV Ventricle Equipment Time Mutuel Cashier Description Size Mfg Part Number Used/Scraped TRANSDUCER, TRUWAVE [id number] 09:18 EnhanCV * Used W/STOCKCOCK *[id number] [id number] *[id number] [id number] *[id number] 09:18 MALLINCKRODT SYRINGE, ANGIOMAT 150ML 150ML *[id number] Used [facility] Dash CONCEPT DRAPE, RADIAL FEMORAL FULL 09:18 * [id number] *[id number] Used DEVELOPMENT BODY [id number] 09:18 TalkSession BLANKET,WARM AIR CCL * Used *[id number] 09:18 [employer]Session PACK, CCL CUSTOM * Used *[id number] 09:18 [employer]Session SUPPORT, ARTERIAL ADULT [id number] *[id number] Used [id number] 09:18 HubSpot PACER PEN, SKIN DUAL W/ RULER * Used *[id number] BAND, RADIAL COMPRESSION TR [id number] 10:09 Kar[employer] 24CM Used SHORT 24 *[id number] SHEATH, FR6 RADIAL PRELUDE 09:18 [employer] FR 6 [id number] Used EASE 11CM [id number] 09:18 [employer] WIRE, EXCHANGE 260CM 3MMJ 260CM Used *[id number] 09:18 NAMIC MANIFOLD, 4 PORT * Used *[id number] 09:18 NYCOMED OMNIPAQUE, 350 MG, 150ML 150ML [id number] Used CATHETER, FR5 OPTITORQUE [id number] 09:46 TERUMO [employer]ICAL FR 5 Used RADIAL TIG 4.5 *[id number] History: Current Medications Medication Dosage/Unit Route Frequency Last Date/Time Taken Statins (any) CARVEDILOL History: Allergies Allergy Reaction *MDRO Multi-Drug Resistant Organism Enalapril COUGH enalaprilat COUGH No Known Allergies History: Risk Factors Family History of Hypertension Dyslipidemia Previous IN Previous Heart Failure Premature CAD Yes Yes Yes Yes No Prior Valve Prior PCI Prior PCIDate Prior CABG Surgery No Yes 11/18/2009 No Cerebrovascular Peripheral Artery Chronic Lung On Dialysis Diabetes Disease Disease Disease No No No Yes No History: Symptoms/Diagnosis Selection Items Chest pain History: Stress Tests Stress or Imaging Studies Performed No History: Other Disease Selection Items CAD COPD Gerd Labs Hgb (g/dl) Hct (%) WBC (l/cumm) Platelets (thousands) 11.60-17.00 35.00-51.00 4.00-11.00 150.00-450.00 14.9 43 11.9 270 Glucose (mg/dl) BUN (mg/dl) Creatinine (mg/dl) BUN:Creatinine (1:x) 74.00-106.00 7.00-18.00 0.50-1.30 10.00-20.00 132 27 1.5 18 Na (meq/l) K (meq/l) 136.00-145.00 3.50-5.10 144 3.5 PTT (sec) 24.30-30.10 52 Troponin I (ng/ml) 0.02-0.05 2.39 Cholesterol (mg/dl) HDL (mg/dl) LDL (mg/dl) HDL:LDL (1:x) Triglycerides (mg/dl) 120.00-200.00 40.00-60.00 0.00-99.00 1.00-6.00 42.00-150.00 199 56 127 2.3 77 Medication Medication Total Dose (Bolus/Oral) Medication Total Dosage/Unit 1% XYLOCAINE 10 mL FENTANYL 50 mcg OXYGEN 2 l/min RADIAL COCKTAIL 5 mL (Bolus) VERSED 2 mg Medications (Bolus/Oral) Medication Time Given Dosage/Unit Administered By Reason 1% XYLOCAINE 07/20/2018 9:55:15 AM 10 mL Christiano Sullivan 10 mL 1% XYLOCAINE given in lab by Christiano Sullivan in Right Radial via Subcutaneous. VERSED 07/20/2018 9:55:26 AM 2 mg Davon Egan RN 2 mg VERSED given in lab by Davon Egan RN in Left Antecubital via Peripheral IV. Ordered by Christiano Sullivan. FENTANYL 07/20/2018 9:56:09 AM 50 mcg Davon Egan RN 50 mcg FENTANYL given in lab by Davon Egan RN in Left Antecubital via Peripheral IV. Ordered by Christiano Everett. RADIAL COCKTAIL 07/20/2018 9:57:28 AM 5 mL (Bolus) Christiano Sullivan 5 mL (Bolus) RADIAL COCKTAIL given in lab by Christiano Sullivan via Radial. Using [Solution Name]. Reason: Ntg 200mcg Heparin 2500U. OXYGEN 07/20/2018 9:59:55 AM 2 l/min Davon Egan RN 2 l/min OXYGEN given in lab by Davon Egan RN via Nasal. Ordered by Christiano Sullivan. Medication (Drip) Medication Time Given Dosage/Unit Concentration/Unit Diluent (ml) Solution IV Solutions 07/20/2018 9:37:27 AM 0 mL (IV) 1000 NaCl .9 Patient arrived on IV Solutions in Left Antecubital via Peripheral IV. Pump/Drip Flow = 20 ml/hr usin g NaCl .9. Initial Case Assessment Cardiovascular HR Rhythm NIBP Chest Pain 54 sb 162/97 2 Circulatory - Right Pulses Posterior Tibial Femoral Radial 1 1 2 Scale (0,1,2,3,4,d) Scale (0,1,2,3,4,d) Neurological State Oriented to time-place- Alert Moves all extremities person Respiration - General Respiration Rate SpO2 (%) (B/min) 10 95 Final Case Assessment Cardiovascular HR Rhythm NIBP Chest Pain 70 sr 132/77 0 Circulatory - Right Pulses Posterior Tibial Femoral Radial 1 1 2 Scale (0,1,2,3,4,d) Scale (0,1,2,3,4,d) Neurological State Oriented to time-place- Alert Moves all extremities person Respiration - General Respiration Rate SpO2 (%) O2 (lpm) (B/min) 19 97 2 Chronological Log Time Study Chronological Log 9:31:38 Patient arrived via Bed. 9:31:39 Patient Name, D.O.B, / Armband Verified By R.N. 9:31:42 Pre-op and post- op instructions given; patient acknowledges understanding of instructions. 9:33:52 Verbal Stimulation=2 Physical Stimulation=2 Airway=2 Respiration=2 TOTAL=8. (0=absent, 1=li mited, 2=present) 9:34:09 Presedation assessment performed by Health Program Manager RN. 9:34:11 Positive Allens test performed on the right radial and ulnar artery. 9:34:26 Patient has been NPO for More than 6Hrs. 9:34:27 Skin Breakdown-Fresh tattoos noted on right arm. 9:34:57 Jossie Prominences Protected Vitals capture started with the following parameters, Patient=Adult, Interval=5 min, Initial Pr vqodgg=587 mmHg, 9:35:56 Deflation Rate=5 mmHg, Cuff placed on Left Arm 9:36:34 HR=55 bpm, EBJZ=900/97 mmhg, SpO2=97.0 %, Resp=12 B/min 9:37:07 A # 18 IV was noted in the Antecubital (left). Grade = 0 9:37:27 Patient arrived on IV Solutions in Left Antecubital via Peripheral IV. Pump/Drip Flow = 20 m l/hr using NaCl .9. 9:37:46 A # 20 IV was noted in the Hand (left). Grade = 0 9:38:55 History and physical on the chart or being dictated. Assessment: Initial Case, HR=54 BPM, Rhythm=sb, FJPG=110/97 mmhg, Chest Pain=2 Right Pulses: Post Tib=1, Femoral=1, Radial=2 9:38:56 Neurological: State=Alert, Ox3, OLIVER Respiration: Resp=10 B/min, SpO2=95 % 9:39:01 Reference ECG taken 9:41:39 HR=56 bpm, GVSO=580/88 mmhg, SpO2=96.0 %, Resp=9 B/min 9:43:59 Right Radial and groin(s) prepped with 2% chlorhexidine, and draped after a 3 min. waiting t bhargavi. 9:47:25 HR=56 bpm, RQQW=448/91 mmhg, SpO2=95.0 %, Resp=16 B/min 9:47:29 MD paged 9:48:14 MD responded 9:49:55 Pressure channel 1 zeroed. 9:51:26 MD arrived. 9:51:41 HR=59 bpm, TAWQ=192/88 mmhg, SpO2=95.0 %, Resp=18 B/min Time Out. Correct patient, correct procedure, correct physician, labs, allergies, and equipment verified with labor contract analyst 9:54:38 team present. Fire risk assesment completed (see hard stop sheet for coding). Time Out Concu rred by MD and individual staff in procedure. 9:55:14 Case Start 9:55:15 10 mL 1% XYLOCAINE given in lab by Christiano Sullivan in Right Radial via Subcutaneous. 9:55:26 2 mg VERSED given in lab by Davon Egan RN in Left Antecubital via Peripheral IV. Ordered b y Christiano Sullivan. 9:56:09 50 mcg FENTANYL given in lab by Davon Egan RN in Left Antecubital via Peripheral IV. Order ed by Christiano Sullivan. 9:56:40 HR=57 bpm, FZRY=188/85 mmhg, SpO2=94.0 %, Resp=6 B/min 9:57:05 Access site was Right Radial Artery . A SHEATH, FR6 RADIAL PRELUDE EASE 11CM FR 6 was advanced into the Radial (right) using the Perc utaneous 9:57:15 technique. 5 mL (Bolus) RADIAL COCKTAIL given in lab by Christiano Sullivan via Radial. Using [Solution Name]. Re ason: Ntg 200mcg 9:57:28 Heparin 2500U. A CATHETER, FR5 OPTITORQUE RADIAL TIG 4.5 FR 5 was advanced over a wire. OMNIPAQUE, 350 MG, 150 ML 150ML 9:57:57 was used for injections. Recorded Pressure: Ao, HR=65, Condition=Condition 1 9:59:45 (Aorta) Ao 141/76/104 9:59:55 2 l/min OXYGEN given in lab by Davon Egan RN via Nasal. Ordered by Christiano Sullivan. 10:00:33 The RCA was injected and visualized at various angles. OMNIPAQUE, 350 MG, 150ML 150ML used . After removing the current catheter a JL 3.5 INFINITI CATHETER FR 5 was advanced over a WIRE, E XCHANGE 260CM 10:00:42 3MMJ 260CM. 10:01:41 HR=60 bpm, YPXB=681/82 mmhg, SpO2=92.0 %, Resp=25 B/min 10:02:04 The LCA was injected and visualized at various angles. OMNIPAQUE, 350 MG, 150ML 150ML used . After removing the current catheter a MPA-2 INFINITI CATHETER FR 5 was advanced over a WIRE, EX CHANGE 260CM 10:03:49 3MMJ 260CM. Recorded Pressure: LV, HR=77, Condition=Condition 1 10:05:33 (Left Ventricle) LV 145/6/17 10:05:46 The LV was manually injected with 10 cc's and visualized. OMNIPAQUE, 350 MG, 150ML 150ML u sed. Recorded Pressure: LV, Ao, HR=74, Condition=Condition 1 10:05:59 (Left Ventricle) LV 145/17/22, (Aorta) Ao 145/75/105 10:06:26 Catheter was removed 10:06:31 Case End (Physician broke scrub) 10:06:38 HR=73 bpm, BLYS=195/77 mmhg, SpO2=98.0 %, Resp=16 B/min Assessment: Final Case, HR=70 BPM, Rhythm=sr, EXWC=944/77 mmhg, Chest Pain=0 Right Pulses: Post Tib=1, Femoral=1, Radial=2 10:06:48 Neurological: State=Alert, Ox3, OLIVER Respiration: Resp=19 B/min, SpO2=97 %, O2=2 lpm Radial Compression Device Used. 12 mLs of air placed in BAND, RADIAL COMPRESSION TR SHORT 24 2 4CM. Affected 10:08:08 hand 95 % O2 saturation. 10:11:37 HR=64 bpm, HVPH=280/77 mmhg, SpO2=97.0 %, Resp=16 B/min 10:15:33 Patient moved to bed 10:16:41 Patient transported to [facility]. End Study - Contrast Media Used In Study Contrast Total Opened (mL) Total Used (mL) Total Wasted (mL) Omnipaque 350 40 40 0 End Study - Maximum Contrast Load Max Contrast Load (mL) 300.0 End Study - Radiation Exposure Fluoro Time Fluoro Dose (mGy) Cine Dose (uGym2) (minutes) 3.6 [id number] End Study - Sheaths Sheaths Pulled By Sheath Hold Time (min) Ata Willis End Study - Patient Disposition Complications Transferred To Interventional Outcome No Telemetry Bed No attempt made
--- NOTE | 2018-07-20 10:27 | MA ---
cc: Christiano Sullivan MD DATE: 07/20/2018 PROCEDURE: Left heart catheterization, selective coronary angiography, left ventriculography. PROCEDURE NOTES: The patient was brought to the cardiac catheterization laboratory in a fasting state after having signed informed consent. The right radial region was prepped and draped as per policy and anesthetized with 1% lidocaine. Arterial access was obtained via the right radial artery and a 6-Mauritanian sheath placed. Coronary arteriography was performed using a Severance catheter for the right coronary and a Justice left 3.5 for the left main. Left ventriculography was done using a multipurpose catheter. There were no apparent immediate complications. A radial artery compression band was applied to his right wrist at the end of the case to achieve good hemostasis. HEMODYNAMIC DATA: Left ventricle 145 with an end diastolic pressure of 17, aorta 145/75 with a mean of 105. CORONARY ARTERIOGRAPHY: Left main has diffuse up to 10% disease. The left anterior descending is a medium-sized vessel giving rise to a medium sized branching diagonal, which has up to 20% proximal stenosis. There is up to 20% stenosis in the proximal LAD. There is a mild muscle bridge noted in the mid LAD. The distal LAD has minimal luminal irregularities. The left circumflex is a large vessel giving rise to a medium size first obtuse marginal, which has 20% ostial stenosis, and a small second obtuse marginal, which has a 30% ostial stenosis. The left circumflex itself has minimal diffuse luminal irregularities. The right coronary artery is a large dominant vessel, which is diffusely diseased. There are probably 2 overlapping stents, encompassing the proximal to mid right coronary. These stents are widely patent. There may be up to 25% restenosis proximally. The mid to distal right coronary has minimal luminal irregularities. LEFT VENTRICULOGRAPHY: Contrast injection of the left ventricle revealed a small area of apical akinesis. Ejection fraction is estimated at 60%. CONCLUSIONS: 1. Overall, mild coronary artery disease. 2. Normal left ventricular function with estimated ejection fraction of 60%. MD MARISOL Gee/cass , 10:12 AM , 10:18 AM [facility]
--- NOTE | 2018-07-20 10:41 | ECG ---
Date Performed: 07/20/2018 Time Performed: 01:28:06 PTAGE: 72 years EKG: SINUS BRADYCARDIA LEFT AXIS DEVIATION NONSPECIFIC INTRAVENTRICULAR CONDUCTION DELAY ABNORMA L ECG NO PREVIOUS TRACING DOCTOR: Christiano Sullivan Interpretating Date/Time 07/20/2018 10:39:54
[2018-07-20] MEDS ORDERED: Acetaminophen 500 MG Tablet PO PRN (12:37)
--- NOTE | 2018-07-20 15:20 | P.DS ---
DS: Providers Date of admission: 07/19/18 20:12 Primary care physician: Jerome De La Paz MD Consults: 07/19/18 20:11 Consult to Cardiology Routine Consulting Provider: Ty Polk Does the patient have a Filterer who follows them?: No Preferred Music Publicist:: Apprentice Carpenter Physician Reason for Consultation: NSTEMI CONSULT FOR AM Notified:: Service Spoke with:: cecilio Date Notified:: 07/19/18 Time Notified:: 22:08 Ordering Provider: KANDACE 07/19/18 20:18 HUB Only Consult Order Routine Consulting Provider: Sherly Dubois Brief History from admission: This is a 80-year-old male with a PMH of HTN, Hyperlipidemia, COPD and CAD s/p Stent who presented to the ER w/ complaints of chest pain starting few hours prior to arrival. Notes chest pain is substernal , 8/10, w/ radiation to arm, feels symptoms similar to previous episodes. Follows w/ Dr. Sullivan as outpatient, states seen approx 6mo ago w/ normal exam. Took 2 ASA at home and given NTG/Morphine w/ some relief, pain now 5/10. On arrival, BP 191/95, HR 86, O2 sat 97% on RA, Afebrile. WBC 11.9. INR 1.0. Creatinine 1.54, previously 1.2 on 10/30/2017. Initial troponin 0 0.02, repeat 0.18. CXR with no acute findings. CTA Chest negative for aortic aneurysm or dissection. DS: Diagnosis Discharge Diagnosis (1) NSTEMI (non-ST elevated myocardial infarction): Status: Acute (2) HTN (hypertension): Status: Acute (3) TRACY (acute kidney injury): Status: Acute DS: Summary Patient was admitted to the [facility], he was monitored on telemetry, serial enzymes done. He underwent cardiac catheterization on 07/20/18 which showed non obstructive CAD, EF 60%. Patient remained stable after cardiac cath. He is stable for discharge home and will follow up with his metal punch press operator. He is to continue on his usual home medication. Time Spent with Patient Total time spent providing and/or coordinating discharge services: Quality: VTE Deep Vein Thrombosis/Pulmonary Embolism Present on Admission: No Results Labs on day of discharge: Labs from last 24 hours 07/20/18 07/20/18 07/20/18 09:04 08:06 08:06 WBC 7.1 RBC 4.49 L Hgb 14.2 Hct 42.4 MCV 94.5 MCH 31.7 MCHC 33.6 RDW 15.0 Plt Count 207 MPV 7.2 Prelim Diff (Auto) Slide review pending Neut % (Auto) 59.5 Lymph % (Auto) 29.4 Dade % (Auto) 9.4 H Eos % (Auto) 1.6 Baso % (Auto) 0.1 Neut # (Auto) 4.2 Lymph # (Auto) 2.1 Dade # (Auto) 0.7 Eos # (Auto) 0.1 Baso # (Auto) 0.0 WBC Differential Manual diff final Diff Scan Seg Neuts % (Manual) 62 Lymphocytes % (Manual) 23 Monocytes % (Manual) 13 H Myelocytes % (Man) 2 H Abs Neuts (Manual) 4.5 Differential Comment . Platelet Estimate Normal Platelet Morphology Normal PT INR APTT 52.0 H Sodium 145 Potassium 4.0 Chloride 110 H Carbon Dioxide 28.3 Anion Gap 7 BUN 23 H Creatinine 1.13 Estimated GFR 64 L Random Glucose 79 Calcium 8.0 L Total Bilirubin 1.5 H AST 28 ALT 31 Alkaline Phosphatase 66 Troponin I 3.45 H* Total Protein 5.1 L D Albumin 2.7 L Triglycerides 77 Cholesterol 199 LDL Cholesterol, Calc 127 H HDL Cholesterol 56.8 Cholesterol/HDL Ratio 3.50 07/20/18 07/19/18 07/19/18 02:43 23:50 20:17 WBC RBC Hgb Hct MCV MCH MCHC RDW Plt Count MPV Prelim Diff (Auto) Neut % (Auto) Lymph % (Auto) Dade % (Auto) Eos % (Auto) Baso % (Auto) Neut # (Auto) Lymph # (Auto) Dade # (Auto) Eos # (Auto) Baso # (Auto) WBC Differential Diff Scan Seg Neuts % (Manual) Lymphocytes % (Manual) Monocytes % (Manual) Myelocytes % (Man) Abs Neuts (Manual) Differential Comment Platelet Estimate Platelet Morphology PT 10.5 INR 1.0 APTT 49.3 H D 20.6 L Sodium Potassium Chloride Carbon Dioxide Anion Gap BUN Creatinine Estimated GFR Random Glucose Calcium Total Bilirubin AST ALT Alkaline Phosphatase Troponin I 2.39 H* Total Protein Albumin Triglycerides Cholesterol LDL Cholesterol, Calc HDL Cholesterol Cholesterol/HDL Ratio 07/19/18 07/19/18 07/19/18 17:55 16:02 16:02 WBC 11.9 H RBC 4.64 Hgb 14.9 Hct 43.0 MCV 92.7 MCH 32.2 MCHC 34.7 RDW 14.8 Plt Count 270 MPV 7.4 Prelim Diff (Auto) Slide review pending Neut % (Auto) 71.5 H Lymph % (Auto) 20.0 Dade % (Auto) 7.9 Eos % (Auto) 0.5 Baso % (Auto) 0.1 Neut # (Auto) 8.5 H Lymph # (Auto) 2.4 Dade # (Auto) 0.9 Eos # (Auto) 0.1 Baso # (Auto) 0.0 WBC Differential . Diff Scan Auto diff confirmed Seg Neuts % (Manual) Lymphocytes % (Manual) Monocytes % (Manual) Myelocytes % (Man) Abs Neuts (Manual) Differential Comment . Platelet Estimate Platelet Morphology PT INR APTT Sodium 144 Potassium 3.5 Chloride 110 H Carbon Dioxide 24.3 Anion Gap 10 BUN 27 H Creatinine 1.54 H Estimated GFR 45 L Random Glucose 132 H Calcium 8.3 L Total Bilirubin 1.1 H AST 23 ALT 36 Alkaline Phosphatase 74 Troponin I 0.18 H 0.02 Total Protein 5.9 L Albumin 3.0 L Triglycerides Cholesterol LDL Cholesterol, Calc HDL Cholesterol Cholesterol/HDL Ratio Impressions ITS Impressions Chest X-Ray 07/19/18 15:45 CONCLUSION: No evidence of acute cardiopulmonary process. Thoracic Aorta CT 07/19/18 17:01 CONCLUSION: 1. Negative for aortic aneurysm or dissection the thorax and abdomen. 2. Severe coronary calcifications. 3. Colonic diverticulosis. Emphysema. Discharge Plan Discharge Disposition Patient Disposition: Discharge Home Discharge Condition Condition: Stable Discharge Order Discharge Orders: Discharge Order (Routine); Ordered 07/20/18 Ordered By: Sacha Gomez Discharge Details Anticipated Discharge Date: 07/20/18 Physicians Team Primary Care Provider: Jerome De La Paz V Attending Provider: Sacha Gomez Other Providers: Ty Polk ; [employer] Rxs /Orders / Referrals /Forms Prescriptions: Continue atorvastatin 80 mg Tablet 80 mg PO DAILY RF: 0 carvedilol 3.125 mg Tablet 3.125 mg PO BID RF: 0 ranitidine HCl 300 mg Capsule 300 mg PO DAILY RF: 0 losartan 25 mg Tablet 25 mg PO DAILY RF: 0 nitroglycerin 0.4 mg Tablet, Sublingual 0.4 mg SUBLINGUAL Q5-15M PRN (Reason: Chest Pain) RF: 0 omeprazole 20 mg Capsule,Delayed Release(Dr/Ec) 20 mg PO DAILY RF: 0 methimazole 10 mg Tablet 10 mg PO DAILY RF: 0 Referrals: Jerome De La Paz MD [Primary Care Provider] - See Instructions Discharge Instructions Patient Printed Instructions: Chest Pain (ED), Heart Catheterization (DC) Additional Instructions: Your Health Problems: Goals to Promote Your Health: * To prevent worsening of your condition * To maintain your health at the optimal level Directions to Meet Your Goals: * Take your medications as prescribed * Follow your dietary instruction * Follow activity as directed * Keep your appointments as scheduled * Take your immunizations and boosters as scheduled * If your symptoms worsen call your PCP * If no PCP go to Urgent Care or Emergency Room Smoking is dangerous to your health. Avoid second hand smoke. You may reach the 24-hour crisis hotline for domestic abuse at . Post Discharge Care Plan Care Plan Goals: Your Health Problems: Goals to Promote Your Health: * To prevent worsening of your condition * To maintain your health at the optimal level Directions to Meet Your Goals: * Take your medications as prescribed * Follow your dietary instruction * Follow activity as directed * Keep your appointments as scheduled * Take your immunizations and boosters as scheduled * If your symptoms worsen call your PCP * If no PCP go to Urgent Care or Emergency Room Smoking is dangerous to your health. Avoid second hand smoke. You may reach the 24-hour crisis hotline for domestic abuse at . Discharge Interventions Interventions: Discharge Planning - Case Management Last Done: 07/20/18 13:05 Status ED Status: Left Department
== END 2018-07-20 17:32 | disposition home or self-care (01) | DRG 281 ==
LOC: NEPE 15:31 → NEDA 20:12 → NEDH 07-20 00:59 → HCIS 07-20 01:56
PROVIDERS: ADMIT Hospitalist; ATTEND Hospitalist
DX: Z95.5 Presence of coronary angioplasty implant and graft; Z79.899 Other long term (current) drug therapy; E78.5 Hyperlipidemia, unspecified; G47.30 Sleep apnea, unspecified; I25.119 Atherosclerotic heart disease of native coronary artery with unspecified angina pectoris; J44.9 Chronic obstructive pulmonary disease, unspecified; I25.2 Old myocardial infarction; N17.9 Acute kidney failure, unspecified; K21.9 Gastro-esophageal reflux disease without esophagitis; Z87.891 Personal history of nicotine dependence; I21.4 Non-ST elevation (NSTEMI) myocardial infarction; I10 Essential (primary) hypertension
CPT/HCPCS: 71010; 71045; 71275; 74175; 80053; 80061; 84484; 85025; 85610; 85730; 90765; 90775; 90776; 93005; 93458; 96365; 96375; 96376; 99152; 99285; C1769; C1893; J1644; J2250; J2270; J2405; J3010; J7030; J7040; Q9967